=== PATIENT | male | born 1960 | race Caucasian/White ===

== ENCOUNTER 2023-04-05 09:28 | Inpatient (IN) | payer OTHER, SELFPAY ==
[2023-04-05] VITALS (24 sets, daily range): BP systolic 89–154; BP diastolic 65–106; PULSE 50–90; RESP 13–25; TEMP 35.7–36.6; O2SAT 65–100; BMI 23.3; BMI 25.0
--- NOTE | 2023-04-05 09:38 | EKG12_ITS ---
Test Reason : CP Blood Pressure : / mmHG Vent. Rate : 067 BPM Atrial Rate : 067 BPM P-R Int : 148 ms QRS Dur : 094 ms QT Int : 436 ms P-R-T Axes : 064 -30 -11 degrees QTc Int : 460 ms Sinus rhythm with Fusion complexes and Premature atrial complexes with Aberrant conduction Left axis deviation Low voltage QRS Anteroseptal infarct , possibly acute Lateral injury pattern ACUTE AR / STEMI Abnormal ECG Confirmed by MEI DICKSON, CARLITOS ([id number]), supervising film or videotape editor JOEL DAS ([id number]) on 04/08/2023 9:27:36 AM Referred By: Alysia Aldridge Confirmed By:CARLITOS HURLEY MD
[2023-04-05] MEDS: Aspirin 81 MG TAB.CHEW 324 MG PO (09:41)
[2023-04-05] MEDS: TICAGRELOR 90 MG TABLET 180 MG PO (09:42)
--- NOTE | 2023-04-05 09:42 | ED.VIS.CHEST ---
HPI History of Present Illness Chief Complaint: Chest Pain Informant: patient Onset/Context/Timing Onset: Today Activity at onset: sudden Timing: Continuous Quality: Positive for Heaviness Location: Right Chest and - (Right arm) Worsened By: Exertion Relieved By: Nothing Associated Symptoms: Positive for Nausea, Vomiting and Diaphoresis; Negative for Dyspnea, Cough, Fever, Lightheadedness, Acid Reflux or Palpitations Narrative Narrative: Patient presents with chest pain that began this morning. Patient states it began approximately 8:15 AM today. Patient states it began rather suddenly. Patient states it is over the right side of his chest. Patient states it radiates down his right arm. Patient states he broke out into a sweat with it. Patient states he did have some nausea and vomiting with it. Patient denies any shortness of breath. Patient denies any lightheadedness or dizziness. Patient describes his pain as a heaviness. CVD Risk Factors: Negative for Hypertension, Diabetes, Hypercholesterolemia, Family History 1' </=55 or Smoking PE Risk Factors: Negative for Recent Travel/Surgery, Recent Immobilization, Prior DVT or PE or Cancer PFSH PFS Medical History (Updated 04/05/23 @ 16:39 by Claudette Buckley) Atherosclerosis of coronary artery of [place] heart without angina pectoris Coronary artery disease Medical History no medical history no medical history Home Medications NK 04/05/23 [History Last Taken Unknown] Allergy/AdvReac Type Severity Reaction Status Date / Time No Known Allergies Allergy Verified 04/05/23 09:41 Family History (Updated 04/05/23 @ 14:[address] Andrew Downs DO) Mother Heart disease Brother Heart disease Surgical History (Updated 04/05/23 @ 16:39 by Claudette Buckley) History of placement of stent in LAD coronary artery (~04/05/23) Surgical History no surgical history no surgical history Social History (Updated 04/05/23 @ 14:[address] Andrew Downs DO) Smoking Status: Never smoker alcohol intake: never substance use type: does not use ROS ROS ED Constitutional Constitutional ED: Denies chills or fever(s) Eyes Eyes: Denies blurry vision or change in vision ENT ENT ED: Denies rhinorrhea or sore throat Cardiovascular Cardiovascular: Reports as per HPI and chest pain; Denies palpitations Respiratory/Chest Respiratory/Chest: Denies cough or dyspnea Gastrointestinal Gastrointestinal: Reports nausea and vomiting; Denies abdominal pain Genitourinary Genitourinary ED: Denies dysuria or hematuria Musculoskeletal Musculoskeletal: Denies back pain or neck pain Integumentary Denies abscess or rash Neurologic Neurologic: Denies headache(s) or weakness Allergic/Immunologic Allergic/Immunologic ED: Denies mouth swelling or urticaria EXAM Physical Exam Const Vital Signs: 04/05/23 09:29 04/05/23 09:38 04/05/23 09:48 Temperature 96.2 F L Temperature Source Temporal Pulse Rate 50 L Respiratory Rate 18 16 Respiratory Effort Respiratory Depth Respiratory Pattern Blood Pressure 142/93 H 154/97 H Blood Pressure Mean 109 Blood Pressure Source Blood Pressure Position Blood Pressure Location Pulse Ox 100 Oxygen Delivery Method Room Air Nasal Cannula Oxygen Flow Rate (L/min) 2 Fraction of Inspired Oxygen (FIO2) 98 04/05/23 10:09 04/05/23 11:49 04/05/23 12:29 Temperature 96.2 F L 97.9 F Temperature Source Oral Temporal Pulse Rate 56 L 79 Respiratory Rate 16 25 H Respiratory Effort Non-Labored Short of Breath Respiratory Depth Normal Respiratory Pattern Normal Blood Pressure 154/79 H 147/93 H Blood Pressure Mean 104 111 Blood Pressure Source Monitor Blood Pressure Position Semi-Fowlers Blood Pressure Location Left Arm Pulse Ox 98 81 Oxygen Delivery Method Nasal Cannula Nasal Cannula Nasal Cannula Oxygen Flow Rate (L/min) 2 5 5 Fraction of Inspired Oxygen (FIO2) 04/05/23 12:34 04/05/23 12:00 04/05/23 12:15 Temperature 97.9 F Temperature Source Temporal Pulse Rate 81 75 85 Respiratory Rate 16 15 15 Respiratory Effort Respiratory Depth Respiratory Pattern Blood Pressure 110/77 134/86 H 123/81 H Blood Pressure Mean 88 102 95 Blood Pressure Source Monitor Monitor Blood Pressure Position Semi-Fowlers Semi-Fowlers Blood Pressure Location Left Arm Left Arm Pulse Ox 91 94 95 Oxygen Delivery Method Nasal Cannula Nasal Cannula Nasal Cannula Oxygen Flow Rate (L/min) 5 5 5 Fraction of Inspired Oxygen (FIO2) 04/05/23 12:30 04/05/23 12:45 04/05/23 12:50 Temperature Temperature Source Pulse Rate 85 90 Respiratory Rate 19 H 22 H Respiratory Effort Respiratory Depth Respiratory Pattern Blood Pressure 110/77 113/86 H Blood Pressure Mean 88 95 Blood Pressure Source Monitor Monitor Blood Pressure Position Semi-Fowlers Semi-Fowlers Blood Pressure Location Left Arm Left Arm Pulse Ox 92 96 95 Oxygen Delivery Method Nasal Cannula Nasal Cannula Nasal Cannula Oxygen Flow Rate (L/min) 6 6 6 Fraction of Inspired Oxygen (FIO2) 04/05/23 13:00 04/05/23 13:15 04/05/23 13:30 Temperature Temperature Source Pulse Rate 88 85 80 Respiratory Rate 13 18 16 Respiratory Effort Respiratory Depth Respiratory Pattern Blood Pressure 89/65 L 111/80 111/80 Blood Pressure Mean 73 90 90 Blood Pressure Source Monitor Monitor Monitor Blood Pressure Position Semi-Fowlers Semi-Fowlers Semi-Fowlers Blood Pressure Location Left Arm Left Arm Left Arm Pulse Ox 98 93 97 Oxygen Delivery Method Nasal Cannula Nasal Cannula Nasal Cannula Oxygen Flow Rate (L/min) 6 6 6 Fraction of Inspired Oxygen (FIO2) 04/05/23 13:45 Temperature Temperature Source Pulse Rate 86 Respiratory Rate 16 Respiratory Effort Respiratory Depth Respiratory Pattern Blood Pressure 125/86 H Blood Pressure Mean 99 Blood Pressure Source Monitor Blood Pressure Position Semi-Fowlers Blood Pressure Location Left Arm Pulse Ox 100 Oxygen Delivery Method Nasal Cannula Oxygen Flow Rate (L/min) 6 Fraction of Inspired Oxygen (FIO2) Positive well nourished, well developed and obese General Appearance ED: well developed Nutritional Appearance: obese HEENT normocephalic and atraumatic Eyes PERRL and EOMs intact bilaterally Neck supple and no JVD Chest Wall palpation of chest normal Resp normal respiratory effort and clear to auscultation bilaterally Effort and Inspection: Negative for respiratory distress Cardio regular rate, regular rhythm and no murmurs GI normal to inspection, nondistended, normoactive bowel sounds, soft to palpation, non-tender and non-distended Extremity normal to inspection General Extremety ED: Negative for edema or tenderness General Extremity: Negative for edema Neuro oriented x3, CN's II-XII intact bilaterally and no sensory deficits noted Sensorium / Orientation: awake and alert Motor Exam: strength 5/5 throughout Psych mental status grossly normal Heart Score History: Highly Suspicious ECG: Significant ST-Depression Age: >45 - <65 years Risk Factors: No Risk Factors Score: 5 MDM MDM MDM Narrative Medical decision making narrative: EKG shows evidence of acute ST elevation [place]. Because of this, STEMI alert was called. Patient was given aspirin, heparin, and Brilinta. Dr. Aldridge came to the emergency department and reviewed the EKG. He agrees with this and will take the patient to the Orientation & Mobility Specialist. Case was discussed with a hospitalist. He will admit the patient to his service to the ICU after the patient is done with the cardiac catheterization. Lab Data Attestation: I reviewed the patient's lab results. Labs: Laboratory Results - last 24 hr 04/05/23 04/05/23 04/05/23 09:45 09:45 09:45 WBC Cancelled Corrected WBC Cancelled RBC Cancelled Hgb Cancelled Hct Cancelled MCV Cancelled MCH Cancelled MCHC Cancelled RDW Std Deviation Cancelled RDW Coeff of Stan Cancelled Plt Count Cancelled MPV Cancelled Immature Gran % (Auto) Cancelled Neut % (Auto) Cancelled Lymph % (Auto) Cancelled [place] % (Auto) Cancelled Eos % (Auto) Cancelled Baso % (Auto) Cancelled Neut # (Auto) Cancelled Immature Gran # (Auto) Cancelled Absolute Neuts (auto) Cancelled Absolute Lymphs (auto) Cancelled Absolute Monos (auto) Cancelled Total Counted Cancelled Neutrophils % (Manual) Cancelled Band Neutrophils % Cancelled Lymphocytes % (Manual) Cancelled Monocytes % (Manual) Cancelled Eosinophils % (Manual) Cancelled Basophils % (Manual) Cancelled Metamyelocytes % Cancelled Myelocytes % Cancelled Promyelocytes % Cancelled Blast Cells % Cancelled Plasma Cell % (Manual) Cancelled Other Cells % Cancelled Nucleated RBC % Cancelled Lymphocytes # Cancelled Basophils # Cancelled Nucleated RBCs/100 WBC Cancelled Differential Comment Cancelled Diff Path Review Cancelled Hypersegmented Neuts Cancelled Atypical Lymphocytes Cancelled Reactive Lymphocytes Cancelled Smudge Cells Cancelled Eosinophilia # Cancelled Toxic Granulation Cancelled Toxic Vacuolation Cancelled Dohle Bodies Cancelled Hailey Rods Cancelled Platelet Estimate Cancelled Plt Morphology Comment Cancelled RBC Morphology Cancelled Polychromasia Cancelled Hypochromasia Cancelled Poikilocytosis Cancelled Basophilic Stippling Cancelled Anisocytosis Cancelled Microcytosis Cancelled Macrocytosis Cancelled Spherocytes Cancelled Sickle Cells Cancelled Target Cells Cancelled Tear Drop Cells Cancelled Ovalocytes Cancelled Stomatocytes Cancelled Fischer-[place]lm Bodies Cancelled [place] Cells Cancelled Bite Cells Cancelled Crenated Cell Cancelled Acanthocytes (Spur) Cancelled Rouleaux Cancelled Schistocytes Cancelled PT Cancelled INR Cancelled APTT Cancelled Activated Clotting Time Sodium Cancelled Potassium Cancelled Chloride Cancelled Carbon Dioxide Cancelled Anion Gap Cancelled BUN Cancelled Creatinine Cancelled Estim Creat Clear Calc Cancelled Est GFR (MDRD) Af Amer Cancelled Est GFR (MDRD) Non-Af Cancelled BUN/Creatinine Ratio Cancelled Glucose Cancelled Calcium Cancelled Troponin I High Sens Cancelled 04/05/23 04/05/23 04/05/23 11:05 11:05 11:05 WBC 18.8 H Corrected WBC RBC 4.40 L Hgb 13.2 Hct 37.5 L MCV 85.2 MCH 30.0 MCHC 35.2 RDW Std Deviation 38.1 RDW Coeff of Stan 12.2 Plt Count 316 MPV 9.8 Immature Gran % (Auto) 0.700 Neut % (Auto) 82.5 H Lymph % (Auto) 10.1 L [place] % (Auto) 4.5 Eos % (Auto) 1.1 Baso % (Auto) 1.1 H Neut # (Auto) Immature Gran # (Auto) Absolute Neuts (auto) 15.5 H Absolute Lymphs (auto) 1.90 Absolute Monos (auto) Total Counted Neutrophils % (Manual) Band Neutrophils % Lymphocytes % (Manual) Monocytes % (Manual) Eosinophils % (Manual) Basophils % (Manual) Metamyelocytes % Myelocytes % Promyelocytes % Blast Cells % Plasma Cell % (Manual) Other Cells % Nucleated RBC % 0 Lymphocytes # Basophils # Nucleated RBCs/100 WBC Differential Comment Diff Path Review Hypersegmented Neuts Atypical Lymphocytes Reactive Lymphocytes Smudge Cells Eosinophilia # Toxic Granulation Toxic Vacuolation Dohle Bodies Hailey Rods Platelet Estimate Plt Morphology Comment RBC Morphology Polychromasia Hypochromasia Poikilocytosis Basophilic Stippling Anisocytosis Microcytosis Macrocytosis Spherocytes Sickle Cells Target Cells Tear Drop Cells Ovalocytes Stomatocytes Fischer-[place] Bodies [place] Cells Bite Cells Crenated Cell Acanthocytes (Spur) Rouleaux Schistocytes PT 17.0 H INR 1.4 APTT > 200.0 H* Activated Clotting Time Sodium 134 L Potassium 4.2 Chloride 104 Carbon Dioxide 20.0 L Anion Gap 10 BUN 15 Creatinine 1.26 Estim Creat Clear Calc 60.32 Est GFR (MDRD) Af Amer 75 Est GFR (MDRD) Non-Af 62 BUN/Creatinine Ratio 11.9 Glucose 234 H Calcium 8.4 L Troponin I High Sens > 060945 H* 0523/23 11:10 WBC Corrected WBC RBC Hgb Hct MCV MCH MCHC RDW Std Deviation RDW Coeff of Stan Plt Count MPV Immature Gran % (Auto) Neut % (Auto) Lymph % (Auto) [place] % (Auto) Eos % (Auto) Baso % (Auto) Neut # (Auto) Immature Gran # (Auto) Absolute Neuts (auto) Absolute Lymphs (auto) Absolute Monos (auto) Total Counted Neutrophils % (Manual) Band Neutrophils % Lymphocytes % (Manual) Monocytes % (Manual) Eosinophils % (Manual) Basophils % (Manual) Metamyelocytes % Myelocytes % Promyelocytes % Blast Cells % Plasma Cell % (Manual) Other Cells % Nucleated RBC % Lymphocytes # Basophils # Nucleated RBCs/100 WBC Differential Comment Diff Path Review Hypersegmented Neuts Atypical Lymphocytes Reactive Lymphocytes Smudge Cells Eosinophilia # Toxic Granulation Toxic Vacuolation Dohle Bodies Hailey Rods Platelet Estimate Plt Morphology Comment RBC Morphology Polychromasia Hypochromasia Poikilocytosis Basophilic Stippling Anisocytosis Microcytosis Macrocytosis Spherocytes Sickle Cells Target Cells Tear Drop Cells Ovalocytes Stomatocytes Fischer-[place] Bodies [place] Cells Bite Cells Crenated Cell Acanthocytes (Spur) Rouleaux Schistocytes PT INR APTT Activated Clotting Time 281 H Sodium Potassium Chloride Carbon Dioxide Anion Gap BUN Creatinine Estim Creat Clear Calc Est GFR (MDRD) Af Amer Est GFR (MDRD) Non-Af BUN/Creatinine Ratio Glucose Calcium Troponin I High Sens EKG Initial EKG: Attestation: I personally reviewed and interpreted this EKG as follows: Interpretation: Sinus Rhythm and S-T Elevation (I, aVL, V1 through V6) Prior EKG tracings: not available for review Prior: No Prior Management Discussion w/another healthcare provider: Hospitalist (Dr. Downs) and Medical Claims Processor (Dr. Aldridge) Critical Care Time Critical care time (excluding procedures): 30-74 minutes (31), Including time spent:, Discussing w/Patient &/or Family/Wind Field Service Manager, Discussing w/Consultants, Arranging Admission or Transfer and Performing Direct Patient Care at Bedside Discharge Plan Dx/Rx/DC Orders Clinical Impression: Acute ST elevation myocardial infarction (STEMI), Chest pain Disposition Disposition: Acute Care Hospital [facility] Discharge Date/Time: 04/05/23 09:55
[2023-04-05] MEDS: Heparin Injection (Vial) 5,000 UNIT/ML VIAL 4000 UNIT IV (09:43)
[2023-04-05] MEDS: EPTIFIBATIDE 75 MG/100 ML VIAL 12 MG CONT INF ×2 (10:05→18:09)
--- NOTE | 2023-04-05 10:21 | EKG12_ITS ---
Test Reason : AM EKG Blood Pressure : / mmHG Vent. Rate : 069 BPM Atrial Rate : 069 BPM P-R Int : 138 ms QRS Dur : 090 ms QT Int : 448 ms P-R-T Axes : 051 031 079 degrees QTc Int : 480 ms Normal sinus rhythm Anterolateral infarct , age undetermined Abnormal ECG Confirmed by MEI DICKSON, CARLITOS ([id number]), associate entertainment editor JOEL DAS ([id number]) on 04/07/2023 9:17:28 AM Referred By: Alysia Aldridge Confirmed By:CARLITOS HURLEY MD
[2023-04-05 11:15] LABS: Absolute Neutrophil Count 15.5 X10^3/uL (2.0-7.7); Basophil% 1.1 % (0-1); Eosinophil# 0.21 X10^3/uL; Eosinophils% 1.1 % (0-5); Hematocrit 37.5 % (40-54); Hemoglobin 13.2 g/dL (13.0-16.5); Lymphocyte % 10.1 % (19-41); Mean Corp Hgb Conc 35.2 g/dL (32-36); Mean Corpuscular Volume 85.2 fL (80-94); Mean Platelet Vol. 9.8 fl (6.2-12.0); Monocyte# 0.85 X10^3/uL; Monocyte% 4.5 % (0-10); NRBC Flagged by Analyzer 0 % (0-5); Neutrophil # 15.47 X10^3/uL (2.7-7.7); Neutrophil % 82.5 % (47-70); Platelet Count 316 K/mm3 (150-450); RBC Distribution Width CV 12.2 % (11.6-14.6); RBC Distribution Width SD 38.1 fl (35.1-43.9); White Blood Count 18.8 K/mm3 (4.4-11.0)
[2023-04-05 11:44] LABS: International Normalized Ratio 1.4
[2023-04-05 12:03] LABS: Partial Thromboplast Time > 200.0 Seconds (24.1-36.2)
--- NOTE | 2023-04-05 12:25 | NURSING ---
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 Blood pressure was good patient was weaned down from 10mcg/min to 5mcg/min at 12:00 then placed on hold at 12:15. 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
[2023-04-05 12:45] LABS: Anion Gap 10 (5-15); BUN 15 mg/dL (7-18); BUN/Creat Ratio 11.9 RATIO (10-20); Calcium,Total 8.4 mg/dL (8.5-10.1); Chloride 104 mmol/L (98-107); Creatinine, Serum 1.26 mg/dL (0.70-1.30); EST Glomerular Filtration Rate 62 mL/min (>60); Est Glom Filt Rate - Afr Amer 75 mL/min (>60); Estimated Creatinine Clearance 60.32 ml/min; Glucose 234 mg/dL (74-106); Potassium 4.2 mmol/L (3.5-5.1); Sodium Level 134 mmol/L (136-145); Troponin-I HS > 125000 pg/mL (3.0-78.0)
[2023-04-05 13:25] LABS: ACT Activated Clotting Time 281 sec (74-137)
--- NOTE | 2023-04-05 14:00 | EKG12_ITS ---
Test Reason : STEMI Blood Pressure : / mmHG Vent. Rate : 075 BPM Atrial Rate : 075 BPM P-R Int : 160 ms QRS Dur : 092 ms QT Int : 398 ms P-R-T Axes : 055 -17 066 degrees QTc Int : 444 ms Normal sinus rhythm Low voltage QRS Abnormal ECG No previous ECGs available Confirmed by MEI DICKSON, CARLITOS ([id number]), film editor JOEL DAS ([id number]) on 04/07/2023 9:17:57 AM Referred By: Alysia Aldridge Confirmed By:CARLITOS HURLEY MD
--- NOTE | 2023-04-05 14:02 | PCM.HP.STD ---
HPI - General General Date of Admission: 04/05/23 Date of Service: 04/05/23 Chief Complaint: Chest pain HPI Narrative ALISON HARDY, is a 62 M who presents with chest pain. Symptoms began at 815 today was having intercourse. States that it was in the right side of his chest went down his right arm. Became diaphoretic and had nausea and vomiting. Patient presented to the emergency room and had anterior, V1 through V6 as well as [address] elevations with reciprocal changes in the inferior leads. In the emergency room, patient had vomiting episode and was unsure if the patient actually received his ticagrelor. Patient underwent left heart catheterization that showed LAD stenosis and had 2 stents placed to the LAD in the proximal and mid. Patient did become hypotensive at 1 point requiring pressors with norepinephrine. Blood pressure did subsequently improve and patient was transferred to the intensive care unit. Since it was unclear the patient did receive his ticagrelor, patient was continued on Integrilin. Patient denies any prior history of myocardial infarction. Currently, the patient is chest pain-free. [facility] Medical History (Updated 04/05/23 @ 14:[address] Andrew Downs DO) Coronary artery disease Medical History no medical history Home Medications NK 04/05/23 [History Last Taken Unknown] Allergy/AdvReac Type Severity Reaction Status Date / Time No Known Allergies Allergy Verified 04/05/23 09:41 Family History (Updated 04/05/23 @ 14:[address] Andrew Downs DO) Mother Heart disease Brother Heart disease Surgical History no surgical history no surgical history Social History (Updated 04/05/23 @ 14:[address] Andrew Downs DO) Smoking Status: Never smoker alcohol intake: never substance use type: does not use ROS ROS Narrative All review of systems were negative except as mentioned above in the history of present illness and the other review of systems. Vital Signs Vital Signs Vital Signs: 04/05/23 09:29 04/05/23 09:38 04/05/23 09:48 Temperature 35.7 C L Temperature Source Temporal Pulse Rate 50 L Respiratory Rate 18 16 Respiratory Effort Respiratory Depth Respiratory Pattern Blood Pressure 142/93 H 154/97 H Blood Pressure Mean 109 Blood Pressure Source Blood Pressure Position Blood Pressure Location Pulse Ox 100 Oxygen Delivery Method Room Air Nasal Cannula Oxygen Flow Rate (L/min) 2 Fraction of Inspired Oxygen (FIO2) 98 04/05/23 10:09 04/05/23 11:49 04/05/23 12:29 Temperature 35.7 C L 36.6 C Temperature Source Oral Temporal Pulse Rate 56 L 79 Respiratory Rate 16 25 H Respiratory Effort Non-Labored Short of Breath Respiratory Depth Normal Respiratory Pattern Normal Blood Pressure 154/79 H 147/93 H Blood Pressure Mean 104 111 Blood Pressure Source Monitor Blood Pressure Position Semi-Fowlers Blood Pressure Location Left Arm Pulse Ox 98 81 Oxygen Delivery Method Nasal Cannula Nasal Cannula Nasal Cannula Oxygen Flow Rate (L/min) 2 5 5 Fraction of Inspired Oxygen (FIO2) 04/05/23 12:34 04/05/23 12:00 04/05/23 12:15 Temperature 36.6 C Temperature Source Temporal Pulse Rate 81 75 85 Respiratory Rate 16 15 15 Respiratory Effort Respiratory Depth Respiratory Pattern Blood Pressure 110/77 134/86 H 123/81 H Blood Pressure Mean 88 102 95 Blood Pressure Source Monitor Monitor Blood Pressure Position Semi-Fowlers Semi-Fowlers Blood Pressure Location Left Arm Left Arm Pulse Ox 91 94 95 Oxygen Delivery Method Nasal Cannula Nasal Cannula Nasal Cannula Oxygen Flow Rate (L/min) 5 5 5 Fraction of Inspired Oxygen (FIO2) 04/05/23 12:30 04/05/23 12:45 04/05/23 12:50 Temperature Temperature Source Pulse Rate 85 90 Respiratory Rate 19 H 22 H Respiratory Effort Respiratory Depth Respiratory Pattern Blood Pressure 110/77 113/86 H Blood Pressure Mean 88 95 Blood Pressure Source Monitor Monitor Blood Pressure Position Semi-Fowlers Semi-Fowlers Blood Pressure Location Left Arm Left Arm Pulse Ox 92 96 95 Oxygen Delivery Method Nasal Cannula Nasal Cannula Nasal Cannula Oxygen Flow Rate (L/min) 6 6 6 Fraction of Inspired Oxygen (FIO2) 04/05/23 13:00 04/05/23 13:15 04/05/23 13:30 Temperature Temperature Source Pulse Rate 88 85 80 Respiratory Rate 13 18 16 Respiratory Effort Respiratory Depth Respiratory Pattern Blood Pressure 89/65 L 111/80 111/80 Blood Pressure Mean 73 90 90 Blood Pressure Source Monitor Monitor Monitor Blood Pressure Position Semi-Fowlers Semi-Fowlers Semi-Fowlers Blood Pressure Location Left Arm Left Arm Left Arm Pulse Ox 98 93 97 Oxygen Delivery Method Nasal Cannula Nasal Cannula Nasal Cannula Oxygen Flow Rate (L/min) 6 6 6 Fraction of Inspired Oxygen (FIO2) 04/05/23 13:45 Temperature Temperature Source Pulse Rate 86 Respiratory Rate 16 Respiratory Effort Respiratory Depth Respiratory Pattern Blood Pressure 125/86 H Blood Pressure Mean 99 Blood Pressure Source Monitor Blood Pressure Position Semi-Fowlers Blood Pressure Location Left Arm Pulse Ox 100 Oxygen Delivery Method Nasal Cannula Oxygen Flow Rate (L/min) 6 Fraction of Inspired Oxygen (FIO2) Weight Weight: 74.871 kg Body Mass Index (BMI) 25.0 Physical Exam Narrative - Physical Exam General: Alert, Oriented x3, Cooperative HEENT: Atraumatic, PERRLA, EOMI, Normocephalic Oral: Moist Mucosa, No Gingival or Mucosal Lesions/ Ulcerations Neck: Supple, No JVD, Negative Carotid Bruits Lungs: Clear to auscultation, Normal air movement Cardiovascular: Regular rate, Normal S1, Normal S2, No murmurs Abdomen: Bowel Sounds Present, Soft, Non Tender, Non-Distended, No Hepato-splenomegaly Extremities: No clubbing, No cyanosis, No edema, does have compression band on right wrist. Skin: No rashes, No breakdown Musculoskeletal: No Tenderness to Palpation of Joints or Extremities Neurological: Neuro grossly intact Psych/Mental Status: Normal Affect, Appropriate Results Lab / Micro Data Attestation: I reviewed the patient's lab results. Result Diagrams: 04/05/23 11:05 04/05/23 11:05 Labs: Laboratory Results - last 24 hr 04/05/23 09:45: WBC Cancelled, Corrected WBC Cancelled, RBC Cancelled, Hgb Cancelled, Hct Cancelled, MCV Cancelled, MCH Cancelled, MCHC Cancelled, RDW Std Deviation Cancelled, RDW Coeff of Stan Cancelled, Plt Count Cancelled, MPV Cancelled, Immature Gran % (Auto) Cancelled, Neut % (Auto) Cancelled, Lymph % (Auto) Cancelled, [place] % (Auto) Cancelled, Eos % (Auto) Cancelled, Baso % (Auto) Cancelled, Neut # (Auto) Cancelled, Immature Gran # (Auto) Cancelled, Absolute Neuts (auto) Cancelled, Absolute Lymphs (auto) Cancelled, Absolute Monos (auto) Cancelled, Total Counted Cancelled, Neutrophils % (Manual) Cancelled, Band Neutrophils % Cancelled, Lymphocytes % (Manual) Cancelled, Monocytes % (Manual) Cancelled, Eosinophils % (Manual) Cancelled, Basophils % (Manual) Cancelled, Metamyelocytes % Cancelled, Myelocytes % Cancelled, Promyelocytes % Cancelled, Blast Cells % Cancelled, Plasma Cell % (Manual) Cancelled, Other Cells % Cancelled, Nucleated RBC % Cancelled, Lymphocytes # Cancelled, Basophils # Cancelled, Nucleated RBCs/100 WBC Cancelled, Differential Comment Cancelled, Diff Path Review Cancelled, Hypersegmented Neuts Cancelled, Atypical Lymphocytes Cancelled, Reactive Lymphocytes Cancelled, Smudge Cells Cancelled, Eosinophilia # Cancelled, Toxic Granulation Cancelled, Toxic Vacuolation Cancelled, Dohle Bodies Cancelled, Hailey Rods Cancelled, Platelet Estimate Cancelled, Plt Morphology Comment Cancelled, RBC Morphology Cancelled, Polychromasia Cancelled, Hypochromasia Cancelled, Poikilocytosis Cancelled, Basophilic Stippling Cancelled, Anisocytosis Cancelled, Microcytosis Cancelled, Macrocytosis Cancelled, Spherocytes Cancelled, Sickle Cells Cancelled, Target Cells Cancelled, Tear Drop Cells Cancelled, Ovalocytes Cancelled, Stomatocytes Cancelled, [place] Bodies Cancelled, [place] Cells Cancelled, Bite Cells Cancelled, Crenated Cell Cancelled, Acanthocytes (Spur) Cancelled, Rouleaux Cancelled, Schistocytes Cancelled 04/05/23 09:45: PT Cancelled, INR Cancelled, APTT Cancelled 04/05/23 09:45: Sodium Cancelled, Potassium Cancelled, Chloride Cancelled, Carbon Dioxide Cancelled, Anion Gap Cancelled, BUN Cancelled, Creatinine Cancelled, Estim Creat Clear Calc Cancelled, Est GFR (MDRD) Af Amer Cancelled, Est GFR (MDRD) Non-Af Cancelled, BUN/Creatinine Ratio Cancelled, Glucose Cancelled, Calcium Cancelled, Troponin I High Sens Cancelled 04/05/23 11:05: PT 17.0 H, INR 1.4, APTT > 200.0 H* 04/05/23 11:05: Sodium 134 L, Potassium 4.2, Chloride 104, Carbon Dioxide 20.0 L, Anion Gap 10, BUN 15, Creatinine 1.26, Estim Creat Clear Calc 60.32, Est GFR (MDRD) Af Amer 75, Est GFR (MDRD) Non-Af 62, BUN/Creatinine Ratio 11.9, Glucose 234 H, Calcium 8.4 L, Troponin I High Sens > [id number] H* 04/05/23 11:05: WBC 18.8 H, RBC 4.40 L, Hgb 13.2, Hct 37.5 L, MCV 85.2, MCH 30.0, MCHC 35.2, RDW Std Deviation 38.1, RDW Coeff of Stan 12.2, Plt Count 316, MPV 9.8, Immature Gran % (Auto) 0.700, Neut % (Auto) 82.5 H, Lymph % (Auto) 10.1 L, [place] % (Auto) 4.5, Eos % (Auto) 1.1, Baso % (Auto) 1.1 H, Absolute Neuts (auto) 15.5 H, Absolute Lymphs (auto) 1.90, Nucleated RBC % 0 04/05/23 11:10: Activated Clotting Time 281 H EKG Initial EKG: Attestation: I personally reviewed and interpreted this EKG as follows: Prior EKG tracings: available for review EKG Rhythm Intrepretation: Sinus Rhythm (ST elevations in V1 through V6 as well as lead I and aVL. Reciprocal ST depressions in the inferior leads.) Assessment & Plan Assessment/Plan (1) Acute ST elevation myocardial infarction (STEMI): PLAN: Patient's status post stents to the mid and proximal LAD. Troponins are greater than 125,000 Continue with aspirin, ticagrelor, atorvastatin and Integrilin for now. Cardiology has seen and will continue to be on consultation Check 2D echocardiogram I discussed with the patient and his at bedside. Explained that he is going to be on dual antiplatelet therapy for at least next year and continue with statins. Given his transient hypotension, will remain to be seen what antihypertensives he will be put on but I would suspect ISAIAS inhibitors and beta-blockers. (2) Hyperglycemia: PLAN: Glucose was 234. Unclear if this is reactive or not. Check his blood sugar and have him have a moderate dose sliding scale insulin Check an A1c PLAN: Plan VTE prophylaxis: SCDs for now. Disposition: Anticipate the patient will be here 2 midnights given his myocardial infarction and profound troponin elevation. Patient will need further monitoring to eval for any arrhythmias. CODE STATUS: Addressed with the patient. Patient wishes to be full code. Charges/Coding Visit Charges Inpatient E&M: 03109 Init Hosp L3
--- NOTE | 2023-04-05 14:04 | ECHOCS_ITS ---
Reason For Study: Chest pain, STEMI Procedure This was a 2D Doppler, Color Flow transthoracic echocardiogram. The study was technically difficult. Contrast injection was performed. Exam performed portable in ICU/CCU. Left Ventricle Normal LV size. The estimated ejection fraction is 35 %. Stage 2 diastolic dysfunction. Severe hypokinesis of the apex, septum and anterior dennison. Right Ventricle Normal RV size. Normal systolic function. Atria Normal left atrium. Normal right atrium. No doppler evidence for ASD. Mitral Valve There is no mitral valve stenosis. Mild (1+) mitral valve insufficiency. Tricuspid Valve There is no tricuspid stenosis. Trivial tricuspid valve insufficiency. Pulmonary artery systolic pressure is 50-55 mmHg. Aortic Valve Trisinus/trileaflet aortic valve. There is no aortic stenosis. No aortic valve insufficiency. Pulmonic Valve There is no pulmonic valvular stenosis. No pulmonic valve insufficiency. Great Vessels Normal aortic root. Pericardium/Pleural No pericardial effusion. MMode/2D Measurements & Calculations LVIDd: 3.8 cm IVSd: 1.3 cm Ao root diam: 3.3 cm LVIDs: 2.4 cm LVPWd: 1.2 cm RVDd: 3.2 cm FS: 37.6 % LAV(MOD-bp): 38.0 ml LVAd ap4: 29.7 cm2 LVAd ap2: 31.1 cm2 LAV(MOD-bp) Indexed: 20.2 ml/m2 LVLd ap4: 8.5 cm LVLd ap2: 8.5 cm LAV(MOD-sp2): 37.9 ml EDV(MOD-sp4): 86.2 ml EDV(MOD-sp2): 91.9 ml LAV(MOD-sp4): 33.7 ml EDV(sp4-el): 87.9 ml EDV(sp2-el): 96.4 ml LVAs ap4: 22.0 cm2 LVAs ap2: 23.6 cm2 LVLs ap4: 8.0 cm LVLs ap2: 7.7 cm ESV(MOD-sp4): 50.0 ml ESV(MOD-sp2): 57.5 ml ESV(sp4-el): 51.4 ml ESV(sp2-el): 60.9 ml EF(MOD-sp4): 42.0 % EF(MOD-sp2): 37.4 % EF(sp4-el): 41.5 % SV(MOD-sp4): 36.2 ml SV(MOD-sp2): 34.4 ml SV(sp4-el): 36.5 ml LA dimension(2D): 3.6 cm LA A4 area: 13.7 cm2 RA A4 area: 10.4 cm2 Time Measurements MV dec time: 0.19 sec Doppler Measurements & Calculations MV E max joseph: 85.3 cm/sec Lat Peak E' Joseph: 5.6 cm/sec Med Peak E' Joseph: 6.1 cm/sec MV A max joseph: 36.2 cm/sec E/E' lat: 15.3 E/E' med: 14.0 MV E/A: 2.4 MV V2 max: 90.5 cm/sec MV dec slope: 439.4 cm/sec2 Ao V2 max: 112.7 cm/sec MV max P.3 mmHg Ao max P.1 mmHg MV V2 mean: 52.9 cm/sec Ao V2 mean: 75.7 cm/sec MV mean P.3 mmHg Ao mean P.7 mmHg MV V2 VTI: 26.4 cm Ao V2 VTI: 20.2 cm AV (velocity ratio): 0.76 LV V1 max: 87.5 cm/sec PA V2 max: 82.8 cm/sec TR max joseph: 289.5 cm/sec LV V1 max P.1 mmHg PA V2 mean: 57.2 cm/sec TR max P.9 mmHg LV V1 mean P.7 mmHg LV V1 mean: 59.9 cm/sec LV V1 VTI: 15.3 cm ECHO/Echo Complete W/ Contrast Interpretation Summary The estimated ejection fraction is 35 %. Stage 2 diastolic dysfunction. Severe hypokinesis of the apex, septum and anterior dennison Mild (1+) mitral valve insufficiency. Ordering Physician: Andrew Downs Referring Physician: Alysia Aldridge Performed By: Latoya Garcia RCS
--- NOTE | 2023-04-05 14:10 | RAD_ITS ---
HISTORY: chest pain. TECHNIQUE: XR Chest 1 View. COMPARISON: None. FINDINGS: CARDIOMEDIASTINAL BORDERS: Cardiac silhouette within normal limits in size. Mediastinal contour unremarkable. LUNGS: Mild perihilar and interstitial opacities. PLEURA: No pleural effusion or pneumothorax seen. OSSEOUS STRUCTURES: Mild thoracic dextrocurvature. RAD/Chest 1 View (Portable) IMPRESSION: Mild interstitial opacities, likely early pulmonary edema. Electronically Signed: Taylor De MD at 14:56 EDT ,
--- NOTE | 2023-04-05 15:05 | CON.PCM.CA_ITS ---
Assessment & Plan Assessment/Plan (1) Acute ST elevation myocardial infarction (STEMI): PLAN: Treated with drug-eluting stents to the LAD. Patient has residual disease in the RCA and also the circumflex which will be treated in a staged manner. At this time we will keep the patient on aspirin, Brilinta, Integrilin overnight, statin. Once the patient is off Levophed when his blood pressure is able to tolerate we will slowly start him on low-dose beta-gene and ISAIAS inhibitor (2) Cardiac arrest: PLAN: Patient went into PEA on the cath table while he was getting prepped for the procedure. CPR was done for less than a minute and patient regained spontaneous circulation. (3) Cardiogenic shock: PLAN: Secondary to ST elevation IN. Responded well to Levophed. Wean off Levophed when able to. HPI Consult Data Date of Consult: 04/05/23 HPI Narrative Reason for Consultation: STEMI HPI Narrative: ALISON HARDY, is a 62 M who presents with chest pain that started about an hour and a half prior to his presentation. The emergency room his EKG revealed anterior ST elevation IN and patient was taken emergently to the [facility]. While the patient was getting draped, he went into PEA briefly. Chest compre ssions were started and patient regained spontaneous circulation. He had 100% occlusion of the LAD that was treated with drug-eluting stents. Patient remained hypotensive and Levophed had to be started. His chest pain improved significantly and patient is doing well at the end of the procedure. He is being admitted to the CCU for further management of his ST elevation IN. Review of systems: All systems reviewed. Patient had an episode of vomiting when he arrived to the [facility]. All others negative except in HPI [facility] Medical History (Updated 04/05/23 @ 15:[address] Alysia Aldridge MD) Coronary artery disease Medical History no medical history Home Medications NK 04/05/23 [History Last Taken Unknown] Allergy/AdvReac Type Severity Reaction Status Date / Time No Known Allergies Allergy Verified 04/05/23 09:41 Family History (Updated 04/05/23 @ 14:[address] Andrew Downs DO) Mother Heart disease Brother Heart disease Surgical History no surgical history Social History (Updated 04/05/23 @ 14:[address] Andrew Jopperi, DO) Smoking Status: Never smoker alcohol intake: never substance use type: does not use Physical Exam Const alert and oriented x3 HEENT normocephalic Eyes no scleral icterus Resp normal respiratory effort Cardio regular rate Risk Stratification Risk Stratification Applicable: No Charges/Coding Visit Charges Inpatient E&M: 36844 Init Hosp L2 Objective Data Vital Signs: Vital Signs Temp Pulse Resp BP Pulse Ox O2 Del Method O2 Flow Rate 97.9 F 80 16 116/84 H 92 Nasal Cannula 4 04/05/23 12:34 04/05/23 14:00 04/05/23 14:00 04/05/23 14:00 04/05/23 14:00 04/05/23 14:00 04/05/23 14:00 FiO2 98 04/05/23 09:48 Oxygen Flow Rate (L/min) 4 Oxygen Delivery Method Nasal Cannula Weight: 165 lb 1 oz Body Mass Index (BMI) 25.0 Lab / Micro Data Result Diagrams: 04/05/23 11:05 04/05/23 11:05 Labs: Laboratory Results - last 24 hr 04/05/23 09:45: WBC Cancelled, Corrected WBC Cancelled, RBC Cancelled, Hgb Cancelled, Hct Cancelled, MCV Cancelled, MCH Cancelled, MCHC Cancelled, RDW Std Deviation Cancelled, RDW Coeff of Stan Cancelled, Plt Count Cancelled, MPV Cancelled, Immature Gran % (Auto) Cancelled, Neut % (Auto) Cancelled, Lymph % (Auto) Cancelled, [place] % (Auto) Cancelled, Eos % (Auto) Cancelled, Baso % (Auto) Cancelled, Neut # (Auto) Cancelled, Immature Gran # (Auto) Cancelled, Absolute Neuts (auto) Cancelled, Absolute Lymphs (auto) Cancelled, Absolute Monos (auto) Cancelled, Total Counted Cancelled, Neutrophils % (Manual) Cancelled, Band Neutrophils % Cancelled, Lymphocytes % (Manual) Cancelled, Monocytes % (Manual) Cancelled, Eosinophils % (Manual) Cancelled, Basophils % (Manual) Cancelled, Metamyelocytes % Cancelled, Myelocytes % Cancelled, Promyelocytes % Cancelled, Blast Cells % Cancelled, Plasma Cell % (Manual) Cancelled, Other Cells % Cancelled, Nucleated RBC % Cancelled, Lymphocytes # Cancelled, Basophils # Cancelled, Nucleated RBCs/100 WBC Cancelled, Differential Comment Cancelled, Diff Path Review Cancelled, Hypersegmented Neuts Cancelled, Atypical Lymphocytes Cancelled, Reactive Lymphocytes Cancelled, Smudge Cells Cancelled, Eosinophilia # Cancelled, Toxic Granulation Cancelled, Toxic Vacuolation Cancelled, Dohle Bodies Cancelled, Hailey Rods Cancelled, Platelet Estimate Cancelled, Plt Morphology Comment Cancelled, RBC Morphology Cancelled, Polychromasia Cancelled, Hypochromasia Cancelled, Poikilocytosis Cancelled, Basophilic Stippling Cancelled, Anisocytosis Cancelled, Microcytosis Cancelled, Macrocytosis Cancelled, Spherocytes Cancelled, Sickle Cells Cancelled, Target Cells Cancelled, Tear Drop Cells Cancelled, Ovalocytes Cancelled, Stomatocytes Cancelled, [place] Bodies Cancelled, [place] Cells Cancelled, Bite Cells Cancelled, Crenated Cell Cancelled, Acanthocytes (Spur) Cancelled, Rouleaux Cancelled, Schistocytes Cancelled 04/05/23 09:45: PT Cancelled, INR Cancelled, APTT Cancelled 04/05/23 09:45: Sodium Cancelled, Potassium Cancelled, Chloride Cancelled, Carbon Dioxide Cancelled, Anion Gap Cancelled, BUN Cancelled, Creatinine Cancelled, Estim Creat Clear Calc Cancelled, Est GFR (MDRD) Af Amer Cancelled, Est GFR (MDRD) Non-Af Cancelled, BUN/Creatinine Ratio Cancelled, Glucose Cancelled, Calcium Cancelled, Troponin I High Sens Cancelled 04/05/23 11:05: PT 17.0 H, INR 1.4, APTT > 200.0 H* 04/05/23 11:05: Sodium 134 L, Potassium 4.2, Chloride 104, Carbon Dioxide 20.0 L , Anion Gap 10, BUN 15, Creatinine 1.26, Estim Creat Clear Calc 60.32, Est GFR (MDRD) Af Amer 75, Est GFR (MDRD) Non-Af 62, BUN/Creatinine Ratio 11.9, Glucose 234 H, Calcium 8.4 L, Troponin I High Sens > 325286 H* 04/05/23 11:05: WBC 18.8 H, RBC 4.40 L, Hgb 13.2, Hct 37.5 L, MCV 85.2, MCH 30.0, MCHC 35.2, RDW Std Deviation 38.1, RDW Coeff of Stan 12.2, Plt Count 316, MPV 9.8, Immature Gran % (Auto) 0.700, Neut % (Auto) 82.5 H, Lymph % (Auto) 10.1 L, [place] % (Auto) 4.5, Eos % (Auto) 1.1, Baso % (Auto) 1.1 H, Absolute Neuts (auto) 15.5 H, Absolute Lymphs (auto) 1.90, Nucleated RBC % 0 04/05/23 11:10: Activated Clotting Time 281 H Cardiology Labs/Tests 04/05/23 09:45: WBC Cancelled, Corrected WBC Cancelled, RBC Cancelled, Hgb Cancelled, Hct Cancelled, MCV Cancelled, MCH Cancelled, MCHC Cancelled, Plt Count Cancelled, MPV Cancelled, Immature Gran % (Auto) Cancelled, Neut % (Auto) Cancelled, Lymph % (Auto) Cancelled, [place] % (Auto) Cancelled, Eos % (Auto) Cancelled, Baso % (Auto) Cancelled, Immature Gran # (Auto) Cancelled, Absolute Neuts (auto) Cancelled, Absolute Monos (auto) Cancelled, Total Counted C ancelled, Neutrophils % (Manual) Cancelled, Band Neutrophils % Cancelled, Lymphocytes % (Manual) Cancelled, Monocytes % (Manual) Cancelled, Eosinophils % (Manual) Cancelled, Basophils % (Manual) Cancelled, Metamyelocytes % Cancelled, Myelocytes % Cancelled, Promyelocytes % Cancelled, Blast Cells % Cancelled, Plasma Cell % (Manual) Cancelled, Other Cells % Cancelled, Nucleated RBC % Cancelled, Lymphocytes # Cancelled 04/05/23 09:45: PT Cancelled, INR Cancelled, APTT Cancelled 04/05/23 09:45: Sodium Cancelled, Potassium Cancelled, Chloride Cancelled, Carbon Dioxide Cancelled, Anion Gap Cancelled, BUN Cancelled, Creatinine Cancelled, Est GFR (MDRD) Af Amer Cancelled, Est GFR (MDRD) Non-Af Cancelled, BUN/Creatinine Ratio Cancelled, Glucose Cancelled, Calcium Cancelled 04/05/23 11:05: PT 17.0 H, INR 1.4, APTT > 200.0 H* 04/05/23 11:05: Sodium 134 L, Potassium 4.2, Chloride 104, Carbon Dioxide 20.0 L , Anion Gap 10, BUN 15, Creatinine 1.26, Est GFR (MDRD) Af Amer 75, Est GFR (MDRD) Non-Af 62, BUN/Creatinine Ratio 11.9, Glucose 234 H, Calcium 8.4 L 04/05/23 11:05: WBC 18.8 H, RBC 4.40 L, Hgb 13.2, Hct 37.5 L, MCV 85.2, MCH 30.0, MCHC 35.2, Plt Count 316, MPV 9.8, Immature Gran % (Auto) 0.700, Neut % (Auto) 82.5 H, Lymph % (Auto) 10.1 L, [place] % (Auto) 4.5, Eos % (Auto) 1.1, Baso % (Auto) 1.1 H, Absolute Neuts (auto) 15.5 H, Nucleated RBC % 0 Rhythm: EKG: ECHO: Stress Test: Cardiac Cath: PCI: CT Surgery: Holter monitor: EPS: PPM: CXR: Chest CT Scan: Radiography Diagnostic Testing: Radiology Impression Chest X-Ray 04/05/23 14:10 IMPRESSION: Mild interstitial opacities, likely early pulmonary edema. Electronically Signed: Taylor De MD at 14:56 EDT ,
[2023-04-05 15:54] LABS: Hemoglobin 13.5 g/dL (13.0-16.5); Mean Corp Hgb Conc 34.6 g/dL (32-36); Mean Corpuscular Hgb 30.1 pg (27.0-32.0); Mean Corpuscular Volume 87.1 fL (80-94); Mean Platelet Vol. 10.2 fl (6.2-12.0); Platelet Count 299 K/mm3 (150-450); RBC Distribution Width CV 12.4 % (11.6-14.6); RBC Distribution Width SD 39.5 fl (35.1-43.9); Red Blood Count 4.48 M/mm3 (4.6-6.2); White Blood Count 18.2 K/mm3 (4.4-11.0)
[2023-04-05 16:06] LABS: Bedside Glucose 141 mg/dL (74-106)
[2023-04-05] MEDS: Ondansetron 4 MG/2 ML Vial IV (17:41)
[2023-04-05 20:28] LABS: Hemoglobin A1c 6.4 % (3.8-5.6)
[2023-04-05] MEDS: TICAGRELOR 90 MG TABLET PO (20:53)
[2023-04-05] MEDS: Atorvastatin Calcium 40 MG Tablet PO (20:53)
[2023-04-05 21:20] LABS: Bedside Glucose 145 mg/dL (74-106)
[2023-04-06] VITALS (19 sets, daily range): BP systolic 83–122; BP diastolic 53–84; PULSE 66–87; RESP 14–20; TEMP 36.6–37.3; O2SAT 93–98; BMI 25.3
[2023-04-06] MEDS: EPTIFIBATIDE 75 MG/100 ML VIAL 12 MG CONT INF (02:30)
[2023-04-06 03:50] LABS: Hematocrit 36.8 % (40-54); Hemoglobin 12.5 g/dL (13.0-16.5); Mean Corpuscular Volume 88.2 fL (80-94); Platelet Count 283 K/mm3 (150-450); RBC Distribution Width CV 12.7 % (11.6-14.6); RBC Distribution Width SD 41.3 fl (35.1-43.9); Red Blood Count 4.17 M/mm3 (4.6-6.2); White Blood Count 19.3 K/mm3 (4.4-11.0)
[2023-04-06 04:26] LABS: ALB/GLOB Ratio 1.1 RATIO (0.9-2.4); AST(SGOT) 1371 U/L (15-37); Alanine Aminotransfer ALT/SGPT 280 U/L (16-61); Albumin, Serum 3.3 g/dL (3.2-5.0); Alkaline Phosphatase 56 U/L (45-117); Anion Gap 9 (5-15); BUN 20 mg/dL (7-18); BUN/Creat Ratio 15.6 RATIO (10-20); Calcium,Total 8.3 mg/dL (8.5-10.1); Chloride 105 mmol/L (98-107); Creatinine, Serum 1.28 mg/dL (0.70-1.30); EST Glomerular Filtration Rate 61 mL/min (>60); Est Glom Filt Rate - Afr Amer 74 mL/min (>60); Estimated Creatinine Clearance 59.38 ml/min; Glucose 155 mg/dL (74-106); Potassium 3.6 mmol/L (3.5-5.1); Protein, Total 6.3 g/dL (6.4-8.2); Sodium Level 139 mmol/L (136-145); Thyroid Stim Hormone (TSH) 1.52 uIU/mL (0.358-3.74)
--- NOTE | 2023-04-06 06:40 | PCM.PN.HOSP ---
Reason for Visit Reason for Visit: Diagnoses ST elevation (STEMI) myocardial infarction of unspecified site (04/05/23) Cardiac arrest, cause unspecified (04/05/23) Cardiogenic shock (04/05/23) Hyperglycemia, unspecified (04/05/23) Subjective Subjective Patient feeling better today, did have some problems with nausea yesterday but no further chest pain, no shortness of breath. Eating better today. Objective Data Objective Data Vital Signs: Vital Signs Temp Pulse Resp BP Pulse Ox O2 Del Method O2 Flow Rate 98 F 73 14 92/58 L 95 Room Air 4 04/06/23 06:00 04/06/23 06:00 04/06/23 06:00 04/06/23 06:00 04/06/23 06:00 04/06/23 06:00 04/05/23 15:47 FiO2 98 04/05/23 09:48 Oxygen Flow Rate (L/min) 4 Oxygen Delivery Method Room Air Weight: 75.614 kg Body Mass Index (BMI) 25.3 Intake & Output: Intake and Output for Last 24 Hours 04/04/23 04/05/23 04/06/23 23:59 23:59 23:59 Intake Total 96.8 / 96.8 142 / 142 Output Total 1300 / 1300 100 / 100 Balance -1203.2 / -1203.2 42 / 42 Lab / Micro Data Result Diagrams: 04/06/23 03:43 04/06/23 03:43 Labs: Laboratory Results - last 24 hr 04/05/23 09:45: WBC Cancelled, Corrected WBC Cancelled, RBC Cancelled, Hgb Cancelled, Hct Cancelled, MCV Cancelled, MCH Cancelled, MCHC Cancelled, RDW Std Deviation Cancelled, RDW Coeff of Stan Cancelled, Plt Count Cancelled, MPV Cancelled, Immature Gran % (Auto) Cancelled, Neut % (Auto) Cancelled, Lymph % (Auto) Cancelled, Smyth % (Auto) Cancelled, Eos % (Auto) Cancelled, Baso % (Auto) Cancelled, Neut # (Auto) Cancelled, Immature Gran # (Auto) Cancelled, Absolute Neuts (auto) Cancelled, Absolute Lymphs (auto) Cancelled, Absolute Monos (auto) Cancelled, Total Counted Cancelled, Neutrophils % (Manual) Cancelled, Band Neutrophils % Cancelled, Lymphocytes % (Manual) Cancelled, Monocytes % (Manual) Cancelled, Eosinophils % (Manual) Cancelled, Basophils % (Manual) Cancelled, Metamyelocytes % Cancelled, Myelocytes % Cancelled, Promyelocytes % Cancelled, Blast Cells % Cancelled, Plasma Cell % (Manual) Cancelled, Other Cells % Cancelled, Nucleated RBC % Cancelled, Lymphocytes # Cancelled, Basophils # Cancelled, Nucleated RBCs/100 WBC Cancelled, Differential Comment Cancelled, Diff Path Review Cancelled, Hypersegmented Neuts Cancelled, Atypical Lymphocytes Cancelled, Reactive Lymphocytes Cancelled, Smudge Cells Cancelled, Eosinophilia # Cancelled, Toxic Granulation Cancelled, Toxic Vacuolation Cancelled, Dohle Bodies Cancelled, Hailey Rods Cancelled, Platelet Estimate Cancelled, Plt Morphology Comment Cancelled, RBC Morphology Cancelled, Polychromasia Cancelled, Hypochromasia Cancelled, Poikilocytosis Cancelled, Basophilic Stippling Cancelled, Anisocytosis Cancelled, Microcytosis Cancelled, Macrocytosis Cancelled, Spherocytes Cancelled, Sickle Cells Cancelled, Target Cells Cancelled, Tear Drop Cells Cancelled, Ovalocytes Cancelled, Stomatocytes Cancelled, Fischer-Puako Bodies Cancelled, Liguori Cells Cancelled, Bite Cells Cancelled, Crenated Cell Cancelled, Acanthocytes (Spur) Cancelled, Rouleaux Cancelled, Schistocytes Cancelled 04/05/23 09:45: PT Cancelled, INR Cancelled, APTT Cancelled 04/05/23 09:45: Sodium Cancelled, Potassium Cancelled, Chloride Cancelled, Carbon Dioxide Cancelled, Anion Gap Cancelled, BUN Cancelled, Creatinine Cancelled, Estim Creat Clear Calc Cancelled, Est GFR (MDRD) Af Amer Cancelled, Est GFR (MDRD) Non-Af Cancelled, BUN/Creatinine Ratio Cancelled, Glucose Cancelled, Calcium Cancelled, Troponin I High Sens Cancelled 04/05/23 11:05: PT 17.0 H, INR 1.4, APTT > 200.0 H* 04/05/23 11:05: Sodium 134 L, Potassium 4.2, Chloride 104, Carbon Dioxide 20.0 L, Anion Gap 10, BUN 15, Creatinine 1.26, Estim Creat Clear Calc 60.32, Est GFR (MDRD) Af Amer 75, Est GFR (MDRD) Non-Af 62, BUN/Creatinine Ratio 11.9, Glucose 234 H, Calcium 8.4 L, Troponin I High Sens > 599432 H* 04/05/23 11:05: WBC 18.8 H, RBC 4.40 L, Hgb 13.2, Hct 37.5 L, MCV 85.2, MCH 30.0, MCHC 35.2, RDW Std Deviation 38.1, RDW Coeff of Stan 12.2, Plt Count 316, MPV 9.8, Immature Gran % (Auto) 0.700, Neut % (Auto) 82.5 H, Lymph % (Auto) 10.1 L, Smyth % (Auto) 4.5, Eos % (Auto) 1.1, Baso % (Auto) 1.1 H, Absolute Neuts (auto) 15.5 H, Absolute Lymphs (auto) 1.90, Nucleated RBC % 0 04/05/23 11:10: Activated Clotting Time 281 H 04/05/23 15:32: POC Glucose 141 H 04/05/23 15:40: WBC 18.2 H, RBC 4.48 L, Hgb 13.5, Hct 39.0 L, MCV 87.1, MCH 30.1, MCHC 34.6, RDW Std Deviation 39.5, RDW Coeff of Stan 12.4, Plt Count 299, MPV 10.2 04/05/23 15:40: Hemoglobin A1c 6.4 H 04/05/23 20:59: POC Glucose 145 H 04/06/23 03:43: WBC 19.3 H, RBC 4.17 L, Hgb 12.5 L, Hct 36.8 L, MCV 88.2, MCH 30.0, MCHC 34.0, RDW Std Deviation 41.3, RDW Coeff of Stan 12.7, Plt Count 283, MPV 10.0 04/06/23 03:43: Sodium 139, Potassium 3.6, Chloride 105, Carbon Dioxide 25.0, Anion Gap 9, BUN 20 H, Creatinine 1.28, Estim Creat Clear Calc 59.38, Est GFR (MDRD) Af Amer 74, Est GFR (MDRD) Non-Af 61, BUN/Creatinine Ratio 15.6, Glucose 155 H, Calcium 8.3 L, Total Bilirubin 0.80, AST 1371 H, ALT 280 H, Alkaline Phosphatase 56, Total Protein 6.3 L, Albumin 3.3, Globulin 3.0, Albumin/Globulin Ratio 1.1, TSH 1.52 Radiography Diagnostic Testing: Radiology Impression Chest X-Ray 04/05/23 14:10 IMPRESSION: Mild interstitial opacities, likely early pulmonary edema. Electronically Signed: Taylor De MD at 14:56 EDT Reading Location ID and State: [facility] / [place] Tel , Service support , Physical Exam Narrative General: Alert, oriented, no apparent distress HEENT: Atraumatic, normocephalic Eyes: Anicteric, normal conjunctiva, extraocular movements grossly intact Neck: Supple Respiratory: Clear to auscultation bilaterally, normal respiratory effort Cardiovascular: Regular rate and rhythm GI: Soft, nontender, nondistended Extremities: No edema Musculoskeletal: Moving all extremities Neuro: No overt focal neurological deficits Skin: No rashes appreciated Psych: Cooperative Assessment & Plan Assessment/Plan (1) Acute ST elevation myocardial infarction (STEMI): (2) Hyperglycemia: PLAN: Plan #STEMI/CAD status post 2 stents to LAD, proximal and mid -In ED had V1 through V6 as well as [address]ations with reciprocal changes in inferior leads -With subsequent cardiac arrest requiring CPR for 1 minute with ROSC -Had GWYN x2 to the LAD and mid and proximal portion and will need staged PCI for residual disease in RCA and circumflex -Aspirin, statin, Brilinta -Integrilin overnight -Due to hypotension had been on Levophed and remained in ICU, start low-dose beta-gene and ISAIAS inhibitor as tolerated -Cardiology consult -Echocardiogram #Cardiac arrest -PEA in [employer] Officer table while getting prepared for heart cath -Less than 1 minute of CPR with ROSC #Cardiogenic shock -Secondary to STEMI -Status post stent as above -Required Levophed, is improving #Leukocytosis -Suspect reactive, no signs symptoms of infection -Continue to monitor #DVT ppx: SCDs Hoa Anderson MD Time spent in the patient's overall evaluation,decision-making process, review of diagnostic data, adjustment of management, discussion with other providers, nursing nursing and ancillary staff involved in patient's care documentation, 30 minutes Charges/Coding Visit Charges Inpatient E&M: 52178 Subs Hosp L2
--- NOTE | 2023-04-06 08:14 | CRPHASE1 ---
Patient Communication Former Patient:: Phase I PHII Cardiac Rehab Discussed with Patient:: Yes Guide to Cardiac Rehab Given to Patient:: Yes Cardiac Rehab Facility Choice List Given to Patient:: Yes - pt chooses [facility] Choice Program [facility] CR PHII:: Communication Given to CR, Refer to [facility] Choice Program Other:: Communication Given to CR, With permission faxed order and referral information Refer Phase II Cardiac Rehab:: Yes Sessions:: 36 sessions - 3 days/wk, 12 weeks Cardiac Rehabilitation Info Cardiac Rehabilitation Program Information: Cardiac Rehab The cardiac rehab team at [facility] consists of highly skilled exercise physiologists, nurses, respiratory therapists and physicians working together with you. Our purpose is to help you have a full recovery and achieve the goals you set for yourself. Over the years many of our patients have returned to activities they assumed they would never do again! We can help restore your confidence and motivation to make lifestyle changes that can have a significant impact on your health and quality of life! We can help answer questions and concerns you may have about exercise, lifestyle, medications, diet, stress and anxiety which are common following a hospitalization. WE monitor ECG and vital signs during exercise and discuss your progress with you and report to your physician(s). Cardiac Rehab is proven to help reduce readmissions, improve functional capacity and lower recurrence of problems with your heart. Our Cardiac Rehab program is Certified by the [place] [employer] Pulmonary [employer] (AACVPR) and Accredited by the [place] [employer] through our [facility]. You can contact us at . We invite you to call us with your questions or to get started in our program. If you have other questions or concerns be sure to ask your physician/provider during your follow-up visit. WE look forward to seeing you!
--- NOTE | 2023-04-06 08:15 | CRPH1.INSTRU ---
General Education CAD and cardiac anatomy and function:: Needs reinforcement Explanation of diagnoses and procedures:: Needs reinforcement Sign/Symptoms of TX:: Needs reinforcement Antiplatelet therapy: Needs reinforcement Proper use of NTG-SL: Needs reinforcement Emergency procedures and activation of EMS: Needs reinforcement Compliance of all prescribed medications: Needs reinforcement
[2023-04-06 08:55] LABS: Bedside Glucose 133 mg/dL (74-106)
[2023-04-06] MEDS: TICAGRELOR 90 MG TABLET PO ×2 (09:28→21:56)
[2023-04-06] MEDS: Aspirin E.C. 81 MG Tablet PO (09:28)
--- NOTE | 2023-04-06 11:55 | CASEMGMT ---
SHANE MCKEON DC Planning Assessment: Face to Face with patient for initial transition planning/care coordination assessment. SHANE MCKEON introduced self and role at [facility], pt voices understanding. Pt is alert, oriented and agreeable to participating in assessment with spouse at bedside. Care providers, pharmacy, and demographics verified. Admitting dx: STEMI PCP: none, pt has used urgent care when needed. Specialists: none [facility]erred [facility]acy[facility] Insurance: MMO Prescription Benefit: yes Living Will/HPOA: none LNOK: Mari Living Arrangements: Pt lives with his in a single story home w/basement and 3-4 steps to enter. The garage is in the basement but there is parking available at ground level if needed. Pt was independent with all ADLs including self care and household tasks and was very active at baseline. Transportation: pt drives and denies any transportation concerns DME/HHC/SNF: pt states he has access to DME if needed but was not using any prior to admission Plan: Pt plans to return home with the support of his . Pt denies any needs at this time. SHANE MCKEON Interventions: PCP list provided to patient and assisted with identifying male providers per pt's preference. Encouraged pt to call and make follow-up appointment and appointment to establish care with a PCP. Discussed anticoagulants needed at discharge with [employer] savings card provided to pt. Will continue to monitor and assist with any additional dc needs as identified. Sophia Dee RN CM
[2023-04-06] MEDS: Insulin Lispro 100 UNIT/ML INSULN.PEN SC (12:43)
[2023-04-06 13:00] LABS: Bedside Glucose 153 mg/dL (74-106)
--- NOTE | 2023-04-06 14:57 | PN.CARD_ITS ---
Subjective Subjective Doing well. Denies any cardiac complaints. Off Levophed. Objective Data Vital Signs: Vital Signs Temp Pulse Resp BP Pulse Ox O2 Del Method O2 Flow Rate 99.1 F 83 16 110/79 94 Room Air 4 04/06/23 12:00 04/06/23 13:00 04/06/23 13:00 04/06/23 13:00 04/06/23 13:00 04/06/23 13:00 04/05/23 15:47 FiO2 98 04/05/23 09:48 Oxygen Flow Rate (L/min) 4 Oxygen Delivery Method Room Air Weight: 166 lb 11.205 oz Body Mass Index (BMI) 25.3 Intake & Output: Intake and Output for Last 24 Hours 04/04/23 04/05/23 04/06/23 23:59 23:59 23:59 Intake Total 96.8 / 96.8 142 / 142 Output Total 1300 / 1300 250 / 250 Balance -1203.2 / -1203.2 -108 / -108 Lab / Micro Data Result Diagrams: 04/06/23 03:43 04/06/23 03:43 Labs: Laboratory Results - last 24 hr 04/05/23 15:32: POC Glucose 141 H 04/05/23 15:40: WBC 18.2 H, RBC 4.48 L, Hgb 13.5, Hct 39.0 L, MCV 87.1, MCH 30.1, MCHC 34.6, RDW Std Deviation 39.5, RDW Coeff of Stan 12.4, Plt Count 299, MPV 10.2 04/05/23 15:40: Hemoglobin A1c 6.4 H 04/05/23 20:59: POC Glucose 145 H 04/06/23 03:43: WBC 19.3 H, RBC 4.17 L, Hgb 12.5 L, Hct 36.8 L, MCV 88.2, MCH 30.0, MCHC 34.0, RDW Std Deviation 41.3, RDW Coeff of Stan 12.7, Plt Count 283, MPV 10.0 04/06/23 03:43: Sodium 139, Potassium 3.6, Chloride 105, Carbon Dioxide 25.0, Anion Gap 9, BUN 20 H, Creatinine 1.28, Estim Creat Clear Calc 59.38, Est GFR (MDRD) Af Amer 74, Est GFR (MDRD) Non-Af 61, BUN/Creatinine Ratio 15.6, Glucose 155 H, Calcium 8.3 L, Total Bilirubin 0.80, AST 1371 H, ALT 280 H, Alkaline Phosphatase 56, Total Protein 6.3 L, Albumin 3.3, Globulin 3.0, Albumin/Globulin Ratio 1.1, TSH 1.52 04/06/23 08:32: POC Glucose 133 H 04/06/23 12:37: POC Glucose 153 H Cardiology Labs/Tests 04/05/23 15:40: WBC 18.2 H, RBC 4.48 L, Hgb 13.5, Hct 39.0 L, MCV 87.1, MCH 30.1, MCHC 34.6, Plt Count 299, MPV 10.2 04/05/23 15:40: Hemoglobin A1c 6.4 H 04/06/23 03:43: WBC 19.3 H, RBC 4.17 L, Hgb 12.5 L, Hct 36.8 L, MCV 88.2, MCH 30.0, MCHC 34.0, Plt Count 283, MPV 10.0 04/06/23 03:43: Sodium 139, Potassium 3.6, Chloride 105, Carbon Dioxide 25.0, Anion Gap 9, BUN 20 H, Creatinine 1.28, Est GFR (MDRD) Af Amer 74, Est GFR (MDRD) Non-Af 61, BUN/Creatinine Ratio 15.6, Glucose 155 H, Calcium 8.3 L, Total Bilirubin 0.80 Rhythm: EKG: ECHO: Stress Test: Cardiac Cath: PCI: CT Surgery: Holter monitor: EPS: PPM: CXR: Chest CT Scan: Radiography Diagnostic Testing: Radiology Impression Chest X-Ray 04/05/23 14:10 IMPRESSION: Mild interstitial opacities, likely early pulmonary edema. Electronically Signed: Taylor De MD at 14:56 EDT Reading Location ID and State: [facility] / [place] Tel , Service support , Physical Exam Const alert and oriented x3 HEENT normocephalic Eyes no scleral icterus Resp normal respiratory effort and clear to auscultation bilaterally Cardio regular rate Assessment & Plan Assessment/Plan (1) Acute ST elevation myocardial infarction (STEMI): PLAN: Treated with drug-eluting stents to the LAD. Patient has residual disease in the RCA and also the circumflex which will be treated in a staged manner as an outpatient. We will add low-dose beta-gene and SIAIAS inhibitor (2) Cardiac arrest: PLAN: Patient went into PEA on the cath table while he was getting prepped for the procedure. CPR was done for less than a minute and patient regained spon taneous circulation. (3) Cardiogenic shock: PLAN: Off Levophed. We will add beta-gene and ISAIAS inhibitor. Patient does have severe LV dysfunction on 2D echo. He will need a follow-up echo in about 3 months. Charges/Coding Visit Charges Inpatient E&M: 25443 Subs Hosp L2
[2023-04-06 17:05] LABS: Bedside Glucose 132 mg/dL (74-106)
[2023-04-06] MEDS: Metoprolol(XL)Succ 25 MG Tablet 12.5 MG PO (17:20)
[2023-04-06] MEDS: Atorvastatin Calcium 40 MG Tablet PO (21:56)
[2023-04-06] MEDS: Lisinopril 2.5 MG Tablet PO (22:12)
[2023-04-06 23:20] LABS: Bedside Glucose 134 mg/dL (74-106)
[2023-04-07 04:00] VITALS: BP 103/72; PULSE 76; RESP 15; TEMP 37; O2SAT 96
[2023-04-07 05:38] LABS: Absolute Lymphocyte Count 1.38 X10^3/uL (0.83-4.51); Absolute Neutrophil Count 11.3 X10^3/uL (2.0-7.7); Basophil# 0.06 X10^3/uL; Basophil% 0.4 % (0-1); Eosinophil# 0.07 X10^3/uL; Eosinophils% 0.5 % (0-5); Hematocrit 32.8 % (40-54); Hemoglobin 11.3 g/dL (13.0-16.5); Lymphocyte # 1.38 X10^3/ul (0.83-4.51); Lymphocyte % 9.8 % (19-41); Mean Corp Hgb Conc 34.5 g/dL (32-36); Mean Corpuscular Hgb 30.5 pg (27.0-32.0); Mean Corpuscular Volume 88.6 fL (80-94); Mean Platelet Vol. 10.3 fl (6.2-12.0); Monocyte# 1.26 X10^3/uL; Monocyte% 8.9 % (0-10); NRBC Flagged by Analyzer 0 % (0-5); Neutrophil # 11.27 X10^3/uL (2.7-7.7); Neutrophil % 79.8 % (47-70); Platelet Count 223 K/mm3 (150-450); RBC Distribution Width CV 12.5 % (11.6-14.6); RBC Distribution Width SD 40.7 fl (35.1-43.9); White Blood Count 14.1 K/mm3 (4.4-11.0)
[2023-04-07 05:42] VITALS: BMI 25.3
[2023-04-07 06:24] LABS: ALB/GLOB Ratio 1.1 RATIO (0.9-2.4); AST(SGOT) 509 U/L (15-37); Alanine Aminotransfer ALT/SGPT 192 U/L (16-61); Albumin, Serum 3.3 g/dL (3.2-5.0); Alkaline Phosphatase 54 U/L (45-117); Anion Gap 6 (5-15); BUN 20 mg/dL (7-18); BUN/Creat Ratio 16.8 RATIO (10-20); Calcium,Total 8.6 mg/dL (8.5-10.1); Chloride 101 mmol/L (98-107); Creatinine, Serum 1.19 mg/dL (0.70-1.30); EST Glomerular Filtration Rate 66 mL/min (>60); Est Glom Filt Rate - Afr Amer 80 mL/min (>60); Estimated Creatinine Clearance 63.87 ml/min; Globulin 3.1 g/dL (2.2-4.2); Glucose 141 mg/dL (74-106); Potassium 3.5 mmol/L (3.5-5.1); Protein, Total 6.4 g/dL (6.4-8.2); Sodium Level 135 mmol/L (136-145)
[2023-04-07 06:51] LABS: Bedside Glucose 138 mg/dL (74-106)
[2023-04-07 07:40] VITALS: BP 96/68; PULSE 81; RESP 16; TEMP 36.9; O2SAT 96
[2023-04-07] MEDS: Lisinopril 2.5 MG Tablet PO (07:53)
[2023-04-07] MEDS: Aspirin E.C. 81 MG Tablet PO (07:53)
[2023-04-07 08:45] VITALS: BP 96/68; PULSE 81
[2023-04-07] MEDS: Metoprolol(XL)Succ 25 MG Tablet 12.5 MG PO (08:45)
[2023-04-07] MEDS: TICAGRELOR 90 MG TABLET PO (08:45)
--- NOTE | 2023-04-07 09:50 | CL.I_ITS ---
Patient Name: ALISON HARDY Study Date: 04/05/2023 Performing: Nicki Aldridge MD Ht: 68 inches 172.72 cm : 1960 Wt: 153.88 lbs 69.8 kg Age: 62 Gender: male BSA: 1.83 PROCEDURE(S) PERFORMED [id number]-([id number])AMI, GWYN OR PTCA, ARTERY/GRAFT, SINGLE VESSEL DC02-([id number])LHC/COR CLINICAL PROFILE AND CO-MORBIDITIES Indications: ACS <= 24 hrs Heart Failure: Newly Diagnosed: Yes, Heart Failure Type: Systolic Stress/Imaging Stress/Image Study Performed: No CAD Presentations: STEMI. Symptom onset Date/Time: 04/05/23 8:15:00 Time Estimated CONCLUSIONS CAD as described. Successful PCI of proximal and mid LAD with GWYN. RECOMMENDATIONS Pt. should return for PCI of pRCA +/- OM2 in about 2-3 weeks DESCRIPTION OF PROCEDURE The patient arrived to the procedure lab. The risks and benefits of the procedure as well as a full description of our services here and lack of surgical backup were fully explained to the patient and/or their significant other prior to the catheterization. The Timeout was completed, verifying the correct patient and procedure. The patient's procedural site was prepped and draped in the usual fashion. Local anesthetic was given subcutaneously to right radial region with Lidocaine 2%. Using a modified Seldinger technique, arterial access was obtained via the right radial artery, a 6Fr sheath was inserted., arterial access was obtained via the right femoral artery, a 6Fr sheath was inserted.. Left Coronary Artery selective angiography was performed in multiple views using a 6 Fr. XB 3 guide catheter. Right Coronary Artery selective angiography was then performed in multiple views using a 5 Fr. JR 4 catheterThe images were reviewed and options discussed. A decision was then made to proceed with an Intervention, IVUS or other adjunct procedure. XB 3.0 Guide catheter was inserted and engaged into the LCA. BMW Guide wire was advanced to the LAD. Priority One inserted Pass # 1 Priority One Removed Angiogram performed pre balloon dilatation. 2 x 12 Emerge Balloon catheter was inserted. Balloon catheter was advanced across lesion in the LAD, proximal. PTCA balloon inflated at 6 atms for 29 secs. PTCA balloon inflated at 6 atms for 17 secs. Balloon catheter was repositioned to additional lesion in the LAD, proximal. Angiogram performed post balloon dilatation. 3.5 x 22 [place] Drug Eluting stent was advanced across the lesion in the LAD, proximal. Angiogram performed post stent deployment. 2.0 x 12 [place] Drug Eluting stent was advanced across the lesion in the LAD, mid. Priority One inserted Pass # 2 Priority One Removed 2.25 x 8 [place] Drug Eluting stent was inserted. Drug Eluting stent was advanced across the lesion in the LAD, mid. Angiogram performed post stent deployment. Contrast was injected through the sheath and the Right Iliac and Femoral artery were assessed for possible closure device. The fem arterial sheath was pulled and a Perclose closure device was deployed for hemostasis. The arterial sheath was pulled and a TR Band was applied for hemostasis. 12cc air inserted. CORONARY ANGIOGRAPHY DOMINANCE: Right Dominant LEFT HEART ASSESSMENT Left Ventricular Ejection Fraction: Not assessed LEFT MAIN: Mild luminal irregularities LEFT ANTERIOR DESCENDING ARTERY: PROX LAD: 100 % Stenosis MID LAD: 80 % Stenosis CIRCUMFLEX ARTERY: Mild luminal irregularities OM 2: Proximal - 70 % Stenosis RIGHT CORONARY ARTERY: PROX RCA: 90 % Stenosis INTERVENTION INFORMATION LESION SITE: LAD (Mid) Lesion Complexity: High/C, chronic total occlusion: No, lesion at bifurcation: No, thrombus present: Yes, lesion length: 18 mm, culprit lesion: Yes, Previously treated lesion: No Pre Stenosis: 100 % Pre intervention LUIS ARMANDO flow: 0 PROCEDURE: Thrombectomy, Drug Eluting Stent with pre dilatation. Post Stenosis: 0 % Post intervention LUIS ARMANDO flow: 3 Lesion Devices: Cordis 6 Fr XB3.0 100cm Guide Catheter Philip .014 190cm BMW [place] Straight Terumo Priority One Aspiration Catheter Td Sci EMERGE MR 2.00x12 BALLOON Medtronic Resolute Jack RX GWYN 2.0x12 LESION SITE: LAD (Proximal) Lesion Complexity: High/C, chronic total occlusion: No, lesion at bifurcation: No, thrombus present: No, lesion length: 20 mm, culprit lesion: Yes, Previously treated lesion: No Pre Stenosis: 80 % Pre intervention LUIS ARMANDO flow: 0 PROCEDURE: Drug Eluting Stent with pre dilatation. Post Stenosis: 0 % Post intervention LUIS ARMANDO flow: 3 Lesion Devices: Cordis 6 Fr XB3.0 100cm Guide Catheter Philip .014 190cm BMW [place] Straight Td Sci EMERGE MR 2.00x12 BALLOON Medtronic Resolute Jack RX GWYN 3.5x22 Medtronic Resolute Jack RX GWYN 2.25x08 COMPLICATIONS No Complications PROCEDURE MEDICATIONS Oxygen: 2 L/min via nasal cannula Oxygen: 4 L/min via nasal cannula Heparin given IA 04/05/2023 10:03:26 Nitro 100 mcg IC 04/05/2023 10:14:06 Nitro 100 mcg IC 04/05/2023 10:14:06 Zofran 4 mg IV 04/05/2023 10:01:36 IV Bolus: .9 NaCl 400 ml total 04/05/2023 11:10:53 SUMMARY OF HEMODYNAMIC DATA Time AIR REST ECG 09:59:28 AO 101/69 (83) SA 10:05:14 Signed By Nicki Aldridge MD On 04/07/2023 09:48:59 Nicki Aldridge MD
--- NOTE | 2023-04-07 10:00 | EKG12_ITS ---
Test Reason : AM EKG Blood Pressure : / mmHG Vent. Rate : 077 BPM Atrial Rate : 077 BPM P-R Int : 146 ms QRS Dur : 084 ms QT Int : 446 ms P-R-T Axes : 050 -14 093 degrees QTc Int : 504 ms Normal sinus rhythm Low voltage QRS Anteroseptal infarct , possibly acute Lateral injury pattern Prolonged QT ACUTE [place] / STEMI Abnormal ECG Confirmed by MEI DICKSON, CARLITOS ([id number]), news editor JOEL DAS ([id number]) on 04/08/2023 9:27:58 AM Referred By: Alysia Aldridge Confirmed By:CARLITOS HURLEY MD
[2023-04-07 12:00] VITALS: PULSE 75
[2023-04-07] MEDS: Insulin Lispro 100 UNIT/ML INSULN.PEN SC (12:20)
[2023-04-07 12:22] VITALS: BP 101/72; PULSE 75; RESP 14; TEMP 36.8; O2SAT 97
[2023-04-07 12:33] LABS: Bedside Glucose 183 mg/dL (74-106)
--- NOTE | 2023-04-07 13:35 | DCINST_ITS ---
Discharge Instructions Diet Discharge Diet: - (DASH diet, 3000 mg sodium restriction, 2 L fluid restriction) Activity Discharge Activity: - (Light activity for 2 to 3 days following your heart catheterization. Unless your job involves lifting return to normal activities within 2 days) Follow Up Care Test Results: Test results from this visit will be discussed in further detail at your follow- up appointment, if applicable. Discharge Plan Admission Admit Date/Time: 04/05/23 13:55 Primary Reason for Your Visit: Chest pain Attending Provider: Hoa Anderson Primary Care Provider: Care Physician,No Primary Consulting Providers: Alysia Aldridge Instructions Patient Instructions: Heart Attack Dc Additional Instructions / Restrictions: DISCHARGE INSTRUCTIONS PLEASE READ *Please take this with you to your next doctors appointment* -Please follow-up with cardiology upon discharge. Please call their office to schedule hospital follow-up appointment upon discharge. You will establish with a new provider as Dr. Aldridge does not see patients in the office. -You have multiple new medications for your heart, please take these as prescribed. These have been sent in to the [facility] in [place] per your preference. -Due to your heart attack you have a decrease in your heart function. Over time your heart will have the chance to recover with blood pressure management and the medications prescribed. A picture of your heart (echocardiogram) will likely be repeated in 3 months, this will be coordinated through your cardiology office -Weigh yourself every day. A sudden weight gain can mean you are retaining fluid. Weigh yourself at the same time of day and in the same kind of clothes. Ideally, weigh yourself first thing in the morning after you empty your bladder, but before you eat breakfast. -Please call your physician if your weight goes up by more than 2 pounds in 1 day or 5 pounds in 1 week. This can be a sign that you are retaining more fluid than you should be. Clues to weight gain include checking your ankles for swelling, or noticing you are short of breath when you lie down -Please limit your sodium intake to less than 3 g/day. Here are tips: Limit canned, dried, packaged, and fast foods. Don't add salt to your food at the table. Season foods with herbs instead of salt when you cook. When you eat out, ask that the catering chef not add any salt to your dish. Don't eat fried or greasy foods. Be careful of bottled beverages. They can contain a lot of salt -Call 911 right away if you have: -Severe shortness of breath, such that you can't catch your breath even while resting -Severe chest pain that does not resolve with rest or nitroglycerin -[place], foamy mucus with cough and shortness of breath -An ongoing rapid or irregular heartbeat -Passing out or fainting -Stroke symptoms such as sudden numbness or weakness on one side of your face, arm, or leg or sudden confusion, trouble speaking or vision changes -Do only light and easy activities for 2 to 3 days after your stent placement, ask for help with chores and errands while you recover and have someone drive you to your appointments. -Unless your job involves lifting you may return to normal activities within 2 days -Please take your medications as prescribed, do not skip doses -Check your incisions every day for signs of infection which would include redness, swelling, leaking. It is normal to have a small bruise or bump where the catheter was placed but a bruise that is getting larger is not normal. Please tell your healthcare team about this. Please proceed to the emergency department if you have uncontrollable bleeding from the site. -It is important to eat a diet that is low in fat, salt, and cholesterol -You will be set up with cardiac rehab upon discharge, it is important that you follow-up -Okay to shower from the day after your heart catheterization but keep your incision site clean and dry. -If you do not have a primary care physician of list of local primary care physicians can be provided for you upon discharge. Please ask for this list prior to discharge -Please call your primary care provider's office upon discharge to schedule a hospital follow up within 1 week. -For any concerning signs or symptoms please call 911 or proceed to the nearest emergency department Discharge Orders/Prescriptions Prescriptions: New atorvastatin 40 mg Tablet 40 mg PO QHS 30 Days Qty: 30 0RF aspirin 81 mg Tablet,Delayed Release (Dr/Ec) 81 mg PO DAILY 30 Days Qty: 30 0RF metoprolol succinate 25 mg Tablet Extended Release 24 Hr 12.5 mg PO DAILY 30 Days Qty: 15 0RF lisinopril 2.5 mg Tablet 2.5 mg PO DAILY 30 Days Qty: 30 0RF Brilinta 90 mg Tablet 90 mg PO BID 30 Days Qty: 60 0RF Referrals / Follow Up: Shun Roman MD [Med Staff - Active Staff] - See Referral Note (-Please follow- up with cardiology upon discharge. Please call their office to schedule hospital follow-up appointment upon discharge. You will establish with a new provider as Dr. Aldridge does not see patients in the office.) Care Physician,No Primary [Primary Care Provider] - See Referral Note (-If you do not have a primary care physician of list of local primary care physicians can be provided for you upon discharge. Please ask for this list prior to discharge) Disposition Disposition (needs filled in before D/C Order can be placed): Home, Self Care
[2023-04-07 13:38] VITALS: BP 100/72; PULSE 78; RESP 14; TEMP 37.1; O2SAT 95
--- NOTE | 2023-04-07 13:39 | DS.PCM_ITS ---
Providers Date of Admission: 04/05/23 Date of Discharge: 04/07/23 Primary Care Physician: Belia Primary Care Phys Consultations 04/05/23 14:04 Consult: Cardiology Routine Consulting Provider: Alysia Aldridge Reason for Consult: STEMI EMERGENT Consult: No MD Notified: Yes Date Notified: 04/05/23 Time Notified: 13:59 Method of Notification: ED Physician Initiated Reason For Visit: STEMI Diagnosis Discharge Diagnosis (1) Acute ST elevation myocardial infarction (STEMI): Status: Acute Code(s): I21.3 - ST elevation (STEMI) myocardial infarction of unspecified site (2) Cardiac arrest: Status: Acute Code(s): I46.9 - Cardiac arrest, cause unspecified (3) Cardiogenic shock: Status: Acute Code(s): R57.0 - Cardiogenic shock (4) Combined systolic and diastolic heart failure: Status: Acute Code(s): I50.40 - Unspecified combined systolic (congestive) and diastolic (congestive) heart failure Plan #STEMI/CAD status post 2 stents to LAD, proximal and mid #Cardiac arrest secondary to STEMI #Cardiogenic shock secondary to STEMI/acute ischemia #acute hfref with possible chronic hfpef, not in exacerbation Medications at Discharge Home Medications aspirin 81 mg tablet,delayed release 81 mg PO DAILY 30 days #30 tabs 04/07/23 atorvastatin 40 mg tablet 40 mg PO QHS 30 days #30 tabs 04/07/23 lisinopril 2.5 mg tablet 2.5 mg PO DAILY 30 days #30 tabs 04/07/23 metoprolol succinate 25 mg tablet,extended release 24 hr 12.5 mg PO DAILY 30 days #15 tabs 04/07/23 ticagrelor 90 mg tablet (Brilinta) 90 mg PO BID 30 days #60 tabs 04/07/23 Hospital Course Procedures Cardiac catheterization, CPR performed and Transthoracic echo Summary of Care Provided Hospital Course: 62-year-old male presented 04/05 with chest pain on exertion with pain down the right side of arm and he became diaphoretic and had nausea vomiting. In ED had V1 through V6 as well as [address]ations with reciprocal changes in inferior leads. With subsequent cardiac arrest requiring CPR for 1 minute with ROSC. -Had GWYN x2 to the LAD and mid and proximal portion and will need staged PCI for residual disease in RCA and circumflex. Started on aspirin, statin, Brilinta. Did require Levophed in the ICU but was quickly transitioned off and started on GDMT. Echo obtained after STEMI showed EF of 35% with stage II diastolic dysfunction. On day of discharge had no complaints, did not appear volume overloaded. Discussed with cardiology, okay with DC and will be set up through their office for staged PCI and can follow-up in their office. D ischarge instructions as follows: -Please follow-up with cardiology upon discharge.? Please call their office to schedule hospital follow-up appointment upon discharge.? You will establish with a new provider as Dr. Aldridge does not see patients in the office. -You have multiple new medications for your heart, please take these as prescribed.? These have been sent in to the [facility] in [place] per your preference. -Due to your heart attack you have a decrease in your heart function.? Over time your heart will have the chance to recover with blood pressure management and the medications prescribed.? A picture of your heart (echocardiogram) will likely be repeated in 3 months, this will be coordinated through your cardiology office -Weigh yourself every day. A sudden weight gain can mean you are retaining fluid. Weigh yourself at the same time of day and in the same kind of clothes. Ideally, weigh yourself first thing in the morning after you empty your bladder, but before you eat breakfast. -Please call your physician if your weight goes up by more than 2 pounds in 1 day or 5 pounds in 1 week. This can be a sign that you are retaining more fluid than you should be. Clues to weight gain include checking your ankles for swelling, or noticing you are short of breath when you lie down -Please limit your sodium intake to less than 3 g/day. Here are tips: Limit canned, dried, packaged, and fast foods. Don't add salt to your food at the table. Season foods with herbs instead of salt when you cook. When you eat out, ask that the record clerk not add any salt to your dish. Don't eat fried or greasy foods. Be careful of bottled beverages. They can contain a lot of salt -Call 911 right away if you have: -Severe shortness of breath, such that you can't catch your breath even while resting -Severe chest pain that does not resolve with rest or nitroglycerin -[place], foamy mucus with cough and shortness of breath -An ongoing rapid or irregular heartbeat -Passing out or fainting -Stroke symptoms such as sudden numbness or weakness on one side of your face, arm, or leg or sudden confusion, trouble speaking or vision changes -Do only light and easy activities for 2 to 3 days after your stent placement, ask for help with chores and errands while you recover and have someone drive you to your appointments. -Unless your job involves lifting you may return to normal activities within 2 days -Please take your medications as prescribed, do not skip doses -Check your incisions every day for signs of infection which would include redness, swelling, leaking.? It is normal to have a small bruise or bump where the catheter was placed but a bruise that is getting larger is not normal.? Please tell your healthcare team about this.? Please proceed to the emergency department if you have uncontrollable bleeding from the site. -It is important to eat a diet that is low in fat, salt, and cholesterol -You will be set up with cardiac rehab upon discharge, it is important that you follow-up -Okay to shower from the day after your heart catheterization but keep your incision site clean and dry. -If you do not have a primary care physician of list of local primary care physicians can be provided for you upon discharge.? Please ask for this list prior to discharge -Please call your primary care provider's office upon discharge to schedule a hospital follow up within 1 week. -For any concerning signs or symptoms please call 911 or proceed to the nearest emergency department Physical Exam Narrative General: Alert, oriented, no apparent distress HEENT: Atraumatic, normocephalic Eyes: Anicteric, normal conjunctiva, extraocular movements grossly intact Neck: Supple Respiratory: Clear to auscultation bilaterally, normal respiratory effort Cardiovascular: Regular rate and rhythm GI: Soft, nontender, nondistended Extremities: No edema Musculoskeletal: Moving all extremities Neuro: No overt focal neurological deficits Skin: No rashes appreciated Psych: Cooperative Weight / BMI Weight Weight: 75.7 kg Body Mass Index (BMI) 25.3 ABG / Lab / Microbiology Data Result Diagrams: 04/07/23 05:18 04/07/23 05:18 Laboratory: Laboratory Results - last 24 hr 04/06/23 16:45: POC Glucose 132 H 05/24/23 21:46: POC Glucose 134 H 04/07/23 05:18: WBC 14.1 H, RBC 3.70 L, Hgb 11.3 L, Hct 32.8 L, MCV 88.6, MCH 30.5, MCHC 34.5, RDW Std Deviation 40.7, RDW Coeff of Stan 12.5, Plt Count 223, MPV 10.3, Immature Gran % (Auto) 0.600, Neut % (Auto) 79.8 H, Lymph % (Auto) 9.8 L, [place] % (Auto) 8.9, Eos % (Auto) 0.5, Baso % (Auto) 0.4, Absolute Neuts (auto) 11.3 H, Absolute Lymphs (auto) 1.38, Nucleated RBC % 0 04/07/23 05:18: Sodium 135 L, Potassium 3.5, Chloride 101, Carbon Dioxide 28.0, Anion Gap 6, BUN 20 H, Creatinine 1.19, Estim Creat Clear Calc 63.87, Est GFR (MDRD) Af Amer 80, Est GFR (MDRD) Non-Af 66, BUN/Creatinine Ratio 16.8, Glucose 141 H, Calcium 8.6, Total Bilirubin 1.40 H, AST 509 H, ALT 192 H, Alkaline Phosphatase 54, Total Protein 6.4, Albumin 3.3, Globulin 3.1, Albumin/Globulin Ratio 1.1 04/07/23 06:28: POC Glucose 138 H 04/07/23 12:14: POC Glucose 183 H Radiography Diagnostic Testing: Radiology Impression Echocardiogram 04/05/23 14:04 Interpretation Summary The estimated ejection fraction is 35 %. Stage 2 diastolic dysfunction. Severe hypokinesis of the apex, septum and anterior dennison Mild (1+) mitral valve insufficiency. Ordering Physician: Andrew Downs Referring Physician: Alysia Aldridge Performed By: Latoya Garcia RCS D/C Instructions Discharge Diet: - (DASH diet, 3000 mg sodium restriction, 2 L fluid restriction) Meaningful Use Info Meaningful Use Diagnoses (Choose all that apply): AMI AMI/Post PCI/Angioplasty Aspirin given w/in 24hrs of arrival?: Yes ASA at discharge?: Yes Antiplatelet Therapy at Discharge:: Yes Statins at discharge?: Yes [place]/ARB at discharge?: Yes Beta Tracie at discharge?: Yes Done w/ Acute ME measure.: Yes Documented LVEF (%): 35 Discharge Plan Admission Admit Date/Time: 04/05/23 13:55 Primary Reason for Your Visit: Chest pain Attending Provider: Hoa Anderson Primary Care Provider: Care Physician,Belia Primary Consulting Providers: Alysia Aldridge Instructions Patient Instructions: Heart Attack Dc Additional Instructions / Restrictions: DISCHARGE INSTRUCTIONS PLEASE READ *Please take this with you to your next doctors appointment* -Please follow-up with cardiology upon discharge. Please call their office to schedule hospital follow-up appointment upon discharge. You will establish with a new provider as Dr. Aldridge does not see patients in the office. -You have multiple new medications for your heart, please take these as prescribed. These have been sent in to the [facility] in [place] per your preference. -Due to your heart attack you have a decrease in your heart function. Over time your heart will have the chance to recover with blood pressure management and the medications prescribed. A picture of your heart (echocardiogram) will likely be repeated in 3 months, this will be coordinated through your cardiology office -Weigh yourself every day. A sudden weight gain can mean you are retaining fluid. Weigh yourself at the same time of day and in the same kind of clothes. Ideally, weigh yourself first thing in the morning after you empty your bladder, but before you eat breakfast. -Please call your physician if your weight goes up by more than 2 pounds in 1 day or 5 pounds in 1 week. This can be a sign that you are retaining more fluid than you should be. Clues to weight gain include checking your ankles for swelling, or noticing you are short of breath when you lie down -Please limit your sodium intake to less than 3 g/day. Here are tips: Limit canned, dried, packaged, and fast foods. Don't add salt to your food at the table. Season foods with herbs instead of salt when you cook. When you eat out, ask that the record clerk not add any salt to your dish. Don't eat fried or greasy foods. Be careful of bottled beverages. They can contain a lot of salt -Call 911 right away if you have: -Severe shortness of breath, such that you can't catch your breath even while resting -Severe chest pain that does not resolve with rest or nitroglycerin -[place], foamy mucus with cough and shortness of breath -An ongoing rapid or irregular heartbeat -Passing out or fainting -Stroke symptoms such as sudden numbness or weakness on one side of your face, arm, or leg or sudden confusion, trouble speaking or vision changes -Do only light and easy activities for 2 to 3 days after your stent placement, ask for help with chores and errands while you recover and have someone drive you to your appointments. -Unless your job involves lifting you may return to normal activities within 2 days -Please take your medications as prescribed, do not skip doses -Check your incisions every day for signs of infection which would include redness, swelling, leaking. It is normal to have a small bruise or bump where the catheter was placed but a bruise that is getting larger is not normal. Please tell your healthcare team about this. Please proceed to the emergency department if you have uncontrollable bleeding from the site. -It is important to eat a diet that is low in fat, salt, and cholesterol -You will be set up with cardiac rehab upon discharge, it is important that you follow-up -Okay to shower from the day after your heart catheterization but keep your incision site clean and dry. -If you do not have a primary care physician of list of local primary care physicians can be provided for you upon discharge. Please ask for this list prior to discharge -Please call your primary care provider's office upon discharge to schedule a hospital follow up within 1 week. -For any concerning signs or symptoms please call 911 or proceed to the nearest emergency department Discharge Orders/Prescriptions Prescriptions: New atorvastatin 40 mg Tablet 40 mg PO QHS 30 Days Qty: 30 0RF aspirin 81 mg Tablet,Delayed Release (Dr/Ec) 81 mg PO DAILY 30 Days Qty: 30 0RF metoprolol succinate 25 mg Tablet Extended Release 24 Hr 12.5 mg PO DAILY 30 Days Qty: 15 0RF lisinopril 2.5 mg Tablet 2.5 mg PO DAILY 30 Days Qty: 30 0RF Brilinta 90 mg Tablet 90 mg PO BID 30 Days Qty: 60 0RF Referrals / Follow Up: Shun Roman MD [Med Staff - Active Staff] - See Referral Note (-Please follow- up with cardiology upon discharge. Please call their office to schedule hospital follow-up appointment upon discharge. You will establish with a new provider as Dr. Aldridge does not see patients in the office.) Care Physician,No Primary [Primary Care Provider] - See Referral Note (-If you do not have a primary care physician of list of local primary care physicians can be provided for you upon discharge. Please ask for this list prior to discharge) Disposition Disposition (needs filled in before D/C Order can be placed): Home, Self Care Charges/Coding Visit Charges Inpatient E&M: 79126 Disch Hosp >30min
--- NOTE | 2023-04-07 16:01 | NURSING ---
reviewed discharge instructions with patient voiced understanding, awaiting for transport home
--- NOTE | 2023-04-07 17:22 | NURSING ---
discharged per wheelchair in care of with instructions
== END 2023-04-07 17:22 | disposition home or self-care (01) | DRG 246 ==
LOC: ED 09:51 → ICU 11:00 → PCU 04-06 15:57
PROVIDERS: Admitting Provider Specialist; Emergency Provider Emergency Medicine; Referring Provider Specialist; Visit Provider Internal Medicine
DX: I21.02 ST elevation (STEMI) myocardial infarction involving left anterior descending coronary artery (principal); R57.0 Cardiogenic shock; I46.2 Cardiac arrest due to underlying cardiac condition; I50.21 Acute systolic (congestive) heart failure; I50.32 Chronic diastolic (congestive) heart failure; I25.10 Atherosclerotic heart disease of native coronary artery without angina pectoris; E66.9 Obesity, unspecified; R73.9 Hyperglycemia, unspecified; Z68.25 Body mass index [BMI] 25.0-25.9, adult; Z79.02 Long term (current) use of antithrombotics/antiplatelets; Z79.82 Long term (current) use of aspirin; Z79.899 Other long term (current) drug therapy
CPT/HCPCS: 36415; 71045; 80048; 80053; 82962; 83036; 84443; 84484; 85025; 85027; 85347; 85610; 85730; 92941; 93005; 93306; 93454; 94668; 97802; 99285; C1757; C1874; J7030; J7050; Q9957; Q9967; A4216; C1725; C1760; C1769; C1887; C1894; C8929; C9606; J1327; J2405

== ENCOUNTER → 2023-04-18 | Outpatient (CLI) | payer OTHER, SELFPAY ==
--- NOTE | 2023-04-18 13:13 | RAD_ITS ---
STUDY: X-RAY CHEST REASON FOR EXAM: Male, 62 years old. Cough/shortness of breath TECHNIQUE: PA and lateral views of the chest. COMPARISON: Comparison is made with prior study dated April 05, 2023. FINDINGS: New small bilateral pleural effusions left greater than right. Bibasilar atelectasis superimposed on mild vascular congestion. Normal size heart. Normal mediastinum and daniela. Normal visualized pulmonary arteries. Normal visualized aortic arch and descending thoracic aorta. Normal visualized thoracic spine. Normal visualized ribs, clavicles, and shoulders. There is no demonstrated abnormality of the visualized soft tissue structures of the upper abdomen. RAD/Chest PA and Lateral IMPRESSION: Vascular congestion and CHF with small bilateral pleural effusions and bibasilar atelectasis worse on the left side. Electronically Signed: Enio Lester MD at 13:35 EDT ,
== END | disposition home or self-care (01) ==
LOC: RAD 13:10
PROVIDERS: PCP Internal Medicine; Referring Provider Internal Medicine; Visit Provider Internal Medicine
DX: I50.20 Unspecified systolic (congestive) heart failure (principal)
CPT/HCPCS: 71046

== ENCOUNTER → 2023-04-21 | Outpatient (CLI) | payer OTHER, SELFPAY ==
[2023-04-21 10:53] LABS: Absolute Lymphocyte Count 1.41 X10^3/uL (0.83-4.51); Absolute Neutrophil Count 6.4 X10^3/uL (2.0-7.7); Basophil# 0.13 X10^3/uL; Basophil% 1.4 % (0-1); Eosinophil# 0.34 X10^3/uL; Eosinophils% 3.7 % (0-5); Hematocrit 38.1 % (40-54); Hemoglobin 12.6 g/dL (13.0-16.5); Lymphocyte # 1.41 X10^3/ul (0.83-4.51); Lymphocyte % 15.5 % (19-41); Mean Corp Hgb Conc 33.1 g/dL (32-36); Mean Corpuscular Volume 90.7 fL (80-94); Mean Platelet Vol. 9.8 fl (6.2-12.0); Monocyte% 8.8 % (0-10); NRBC Flagged by Analyzer 0 % (0-5); Neutrophil # 6.35 X10^3/uL (2.7-7.7); Neutrophil % 70.2 % (47-70); Platelet Count 518 K/mm3 (150-450); RBC Distribution Width CV 12.7 % (11.6-14.6); RBC Distribution Width SD 41.7 fl (35.1-43.9); White Blood Count 9.1 K/mm3 (4.4-11.0)
[2023-04-21 11:41] LABS: ALB/GLOB Ratio 0.9 RATIO (0.9-2.4); AST(SGOT) 29 U/L (15-37); Alanine Aminotransfer ALT/SGPT 32 U/L (16-61); Albumin, Serum 3.7 g/dL (3.2-5.0); Alkaline Phosphatase 104 U/L (45-117); Anion Gap 5 (5-15); BUN 12 mg/dL (7-18); BUN/Creat Ratio 10.3 RATIO (10-20); Calcium,Total 9.1 mg/dL (8.5-10.1); Chloride 102 mmol/L (98-107); Cholesterol 74 mg/dL (200); Creatinine, Serum 1.17 mg/dL (0.70-1.30); EST Glomerular Filtration Rate 67 mL/min (>60); Est Glom Filt Rate - Afr Amer 82 mL/min (>60); Glucose 119 mg/dL (74-106); High Density Lipoprotein 43 mg/dL; Potassium 4.1 mmol/L (3.5-5.1); Protein, Total 7.7 g/dL (6.4-8.2); Sodium Level 134 mmol/L (136-145); Triglycerides 66 mg/dL; Very Low Density Lipoprotein 13 mg/dL (5-40)
== END | disposition home or self-care (01) ==
LOC: LAB 09:27
PROVIDERS: PCP Internal Medicine; Referring Provider Internal Medicine; Visit Provider Internal Medicine
DX: I25.10 Atherosclerotic heart disease of native coronary artery without angina pectoris (principal)
CPT/HCPCS: 36415; 80053; 80061; 85025

== ENCOUNTER 2023-04-27 09:37 | Day surgery (SDC) | payer OTHER, SELFPAY ==
[2023-04-26 07:31] VITALS: BMI 25.7
--- NOTE | 2023-04-27 13:05 | CL.I_ITS ---
Patient Name: ALISON HARDY Study Date: 04/27/2023 Performing: Nicki Aldridge MD Ht: 68 inches 172.72 cm : 1960 Wt: 169.01 lbs 76.66 kg Age: 62 Gender: male BSA: 1.9 PROCEDURE(S) PERFORMED IC12-([id number])GWYN W/WO PTCA, SINGLE CORONARY ARTERY [id number])LHC/COR IC01-([id number])PTCA, SINGLE CORONARY ARTERY CLINICAL PROFILE AND CO-MORBIDITIES Indications: Staged PCI of RCA Heart Failure: None CONCLUSIONS CAD as described. Successful GWYN to pRCA. Successful PTCA of prior LAD stent RECOMMENDATIONS DESCRIPTION OF PROCEDURE The patient arrived to the procedure lab. The risks and benefits of the procedure as well as a full description of our services here and lack of surgical backup were fully explained to the patient and/or their significant other prior to the catheterization. The Timeout was completed, verifying the correct patient and procedure. The patient's procedural site was prepped and draped in the usual fashion. Local anesthetic was given subcutaneously to right radial region with Lidocaine 2%. Using a modified Seldinger technique, arterial access was obtained via the right radial artery, a 6Fr sheath was inserted.. Left Coronary Artery selective angiography was performed in multiple views using a 5 Fr. JL3.5 catheter JR4 Guide catheter was inserted and engaged into the RCA. BMW Guide wire was advanced to the RCA. 3.5X20 EMERGE Balloon catheter was inserted. Balloon catheter was advanced across lesion in the right coronary, proximal. PTCA balloon inflated at 10 atms for 16 secs. 4.5X26 RESOLUTE Drug Eluting stent was inserted. Drug Eluting stent was advanced across the lesion in the right coronary, proximal. Angiogram performed post stent deployment. 4.5X15 NC EMERGE Balloon catheter was inserted post stent. Angiogram performed post balloon dilatation. XB3.0 Guide catheter was inserted and engaged into the LCA. BMW Guide wire was advanced to the LAD. Priority One inserted Pass # 1 3.5X20 EMERGE Balloon catheter was inserted. Balloon catheter was advanced across lesion in the LAD, proximal. PTCA balloon inflated at 8 atms for 15 secs. Angiogram performed post balloon dilatation. The arterial sheath was pulled and a TR Band was applied for hemostasis-16 cc air CORONARY ANGIOGRAPHY DOMINANCE: Right Dominant LEFT MAIN: Mild luminal irregularities LEFT ANTERIOR DESCENDING ARTERY: Mild luminal irregularities. Two filling defects were noted within the stent in the pLAD that could be thrombus. CIRCUMFLEX ARTERY: Mild luminal irregularities OM 2: Proximal - 60-70 % Stenosis RIGHT CORONARY ARTERY: PROX RCA: 90 % Stenosis INTERVENTION INFORMATION LESION SITE: RCA (Proximal) Lesion Complexity: High/C, chronic total occlusion: No, lesion at bifurcation: No, thrombus present: No, lesion length: 20 mm, culprit lesion: Yes, Previously treated lesion: No Pre Stenosis: 90 % Pre intervention LUIS ARMANDO flow: 3 PROCEDURE: Drug Eluting Stent with pre dilatation. Post Stenosis: 0 % Post intervention LUIS ARMANDO flow: 3 Lesion Devices: Philip .014 190cm BMW [place] Straight Cordis 6 Fr JR4 100cm Guide Catheter Td Sci EMERGE MR 3.50x20 BALLOON Medtronic Resolute [place] RX GWYN 4.50x26 Td Sci NC EMERGE MR 4.50x15 BALLOON LESION SITE: LAD (Proximal) Lesion Complexity: High/C, chronic total occlusion: No, lesion at bifurcation: No, thrombus present: Yes, lesion length: 8 mm, culprit lesion: Yes, Previously treated lesion: Yes, Timeframe of previous treatment: <1 month, In-stent restenosis: No, Previously treated with a stent: Yes Stent Type: with GWYN, In-stent Thrombosis: Yes Pre Stenosis: 20 % Pre intervention LUIS ARMANDO flow: 3 PROCEDURE: Thrombectomy Balloon Angioplasty There appeared to be thrombus within prior stent without any compromise to blood flow. We perrfomed thrombectomy, PTCA to optimize stent and will switch frm brilinta to effient Post Stenosis: 0 % Post intervention LUIS ARMANDO flow: 3 Lesion Devices: Philip .014 190cm BMW [place] Straight Td Sci EMERGE MR 3.50x20 BALLOON Cordis 6 Fr XB3.0 100cm Guide Catheter Terumo Priority One Aspiration Catheter COMPLICATIONS No Complications PROCEDURE MEDICATIONS Versed 1 mg IV Fentanyl 50 mcg IV Oxygen: 2 L/min via nasal cannula Heparin given IA 04/27/2023 11:47:26 Heparin 3000 unit(s) IV 04/27/2023 11:47:36 Heparin 1000 unit(s) IV 04/27/2023 12:13:41 Verapamil 2.5mg, Ntg 100mcgs, 3000 units of Heparin given IA 04/27/2023 11:47:26 SUMMARY OF HEMODYNAMIC DATA Time AIR REST ECG 10:19:22 AO 91/51 (70) SA 11:49:21 Signed By Nicki Aldridge MD On 04/27/2023 13:04:32 Nicki Aldridge MD
--- NOTE | 2023-04-27 13:52 | CRPHASE1 ---
Patient Communication Former Patient:: Phase I PHII Cardiac Rehab Discussed with Patient:: Yes Guide to Cardiac Rehab Given to Patient:: Yes Cardiac Rehab Facility Choice List Given to Patient:: Yes Choice Program [facility] CR PHII:: Communication Given to CR Straddle Bug:: Alysia Aldridge Refer Phase II Cardiac Rehab:: Yes Sessions:: 36 sessions - 3 days/wk, 12 weeks Cardiac Rehabilitation Info Cardiac Rehabilitation Program Information: Cardiac Rehab The cardiac rehab team at [facility] [place] consists of highly skilled exercise physiologists, nurses, respiratory therapists and physicians working together with you. Our purpose is to help you have a full recovery and achieve the goals you set for yourself. Over the years many of our patients have returned to activities they assumed they would never do again! We can help restore your confidence and motivation to make lifestyle changes that can have a significant impact on your health and quality of life! We can help answer questions and concerns you may have about exercise, lifestyle, medications, diet, stress and anxiety which are common following a hospitalization. WE monitor ECG and vital signs during exercise and discuss your progress with you and report to your physician(s). Cardiac Rehab is proven to help reduce readmissions, improve functional capacity and lower recurrence of problems with your heart. Our Cardiac Rehab program is Certified by the [place] [employer]monary [employer] (AACVPR) and Accredited by the [employer] through our [facility]. You can contact us at . We invite you to call us with your questions or to get started in our program. If you have other questions or concerns be sure to ask your physician/provider during your follow-up visit. WE look forward to seeing you!
--- NOTE | 2023-04-27 13:53 | CRPH1.INSTRU ---
General Education CAD and cardiac anatomy and function:: Patient communicates acknowledgment, Needs reinforcement Explanation of diagnoses and procedures:: Patient communicates acknowledgment, Needs reinforcement Sign/Symptoms of UT:: Patient communicates acknowledgment, Needs reinforcement Antiplatelet therapy: Patient communicates acknowledgment, Needs reinforcement Proper use of NTG-SL: Patient communicates acknowledgment, Needs reinforcement Emergency procedures and activation of EMS: Patient communicates acknowledgment, Needs reinforcement Compliance of all prescribed medications: Patient communicates acknowledgment, Needs reinforcement Smoking Patient Nicotine/Smoking Risk Factors Are:: Non-smoker Dyslipidemia Patient Dyslipidemia Risk Factors Are:: Total Cholesterol, Triglycerides, HDL, LDL Recommendations Include:: Lipid profile not available Dyslipidemia Response Code:: Patient communicates acknowledgment, Needs reinforcement Overweight/Obesity Patient Overweight/Obesity Risk Factors Are:: Overweight = 26-29 Recommendations Include:: Weight loss of 5-10%, Reduced calorie diet, Exercise 5-7 times/week Overweight/Obesity:: Patient communicates acknowledgment, Needs reinforcement Hypertension Patient Hypertension Risk Factors Are:: No documented hx of HTN Recommendations Include:: Maintain BP <130/85 Hypertension:: Patient communicates acknowledgment, Needs reinforcement Heart Disease Patient Heart Disease Risk Factors Are:: Previous cardiac event Recommendations Include:: Educated family members of their risk Heart Disease Response Code:: Patient communicates acknowledgment, Needs reinforcement Diabetes Patient Diabetes Risk Factors Are:: No documented hx of diabetes Sedentary Patient Sedentary Risk Factors Are:: Lack of regular exercise Recommendations Include:: Aerobic exercise 5-7 times/week for 20-30 minutes continuously, Benefits of regular exercise, Discussed home walking program, Monitored Outpatient Cardiac Rehab Sedentary Response Code:: Patient communicates acknowledgment, Needs reinforcement
== END 2023-04-27 15:41 | disposition home or self-care (01) ==
PROVIDERS: PCP Internal Medicine; Referring Provider Specialist; Visit Provider Specialist
DX: T82.867A Thrombosis due to cardiac prosthetic devices, implants and grafts, initial encounter (principal); I50.20 Unspecified systolic (congestive) heart failure; I25.10 Atherosclerotic heart disease of native coronary artery without angina pectoris; I25.2 Old myocardial infarction; Z79.82 Long term (current) use of aspirin; Z79.899 Other long term (current) drug therapy; Z95.5 Presence of coronary angioplasty implant and graft; X58.XXXA Exposure to other specified factors, initial encounter
CPT/HCPCS: 92920; 92928; 93005; 93454; 99152; 99153; C1757; C1874; J7040; Q9967; C1725; C1769; C1887; C1894; C9600

== ENCOUNTER → 2023-05-18 | Outpatient (CLI) | payer OTHER, SELFPAY ==
--- NOTE | 2023-05-18 07:59 | CR.HP_ITS ---
CR - History & Physical General Arrival date:: 05/18/23 Arrival time:: 07:59 Date of Referral:: 04/05/23 Date of CR Evaluation:: 05/18/23 Referring Physician: Dr. Shun Roman Primary Diagnosis: PCI with stent History of Present Cardiac Event Onset Date PTCA or coronary stenting:: Yes Vessel: 04/05/23 LAD, RCA Medications Ambulatory Orders Medication Instructions Recorded aspirin 81 mg tablet,delayed 81 mg PO DAILY #90 tabs 04/18/23 release furosemide 40 mg tablet (Lasix) 40 mg PO DAILY #30 tabs 04/18/23 potassium chloride 20 mEq 20 meq PO DAILY #30 tabs 04/18/23 tablet,extended release prasugrel 10 mg tablet (Effient) 10 mg PO DAILY #30 tabs 04/27/23 atorvastatin 40 mg tablet 40 mg PO QHS 30 days #90 tabs 05/02/23 metoprolol succinate 25 mg 12.5 mg (1/2 x 25 mg) PO DAILY #45 05/02/23 tablet,extended release 24 hr tabs losartan 25 mg tablet 25 mg PO DAILY #30 tabs 05/09/23 Allergies Allergies No Known Allergies Allergy (Verified 05/09/23 13:28) Sleep Disorder Evaluation Hx of Sleep Apnea: No Do you snore loudly (louder than talking or can be heard through closed doors)?: No Do you often feel tired/ fatigued/ sleepy during daytime?: No Has anyone observed you stop breathing during sleep?: No History of Hypertension (for STOP score): No STOP Results: Negative Advanced Directives Advanced Directives Power of Nursing Home Physician: No Living Will: No Advance Directives Information Provided: No Advance Directives on File: No DNR Order?:: No Past Medical History Covid-19 Screening Physicial Symptoms Other Clinical Concerns Exposure Risk Pertinent Comorbidities Has a serious heart condition:: Yes Past Medical Illness Medical History Acute ST elevation myocardial infarction (STEMI) Atherosclerosis of coronary artery of [place] heart without angina pectoris Cardiac arrest Cardiogenic shock Coronary artery disease Past Surgical History Surgical History History of coronary artery stent placement (04/27/23) History of tonsillectomy Family History Summary Family History (Reviewed 05/09/23 @ 13:53 by Rafy Naylor [employer], [employer]) Mother Cardiomegaly Brother Heart disease Diabetes Father Diabetes Sister Diabetes Social History Smoking History Hx Tobacco Use: No Alcohol Use Alcohol Usage: No Substance Abuse Hx Substance Use: No Occupation Occupation (List type of work in comments):: Employed Hours worked per day:: 9 Returned to work on:: 04/14/23 Hobbies, Recreation, Social Activities Hobbies: Reading and Walking Recreational Activities: I am able to engage in all my recreational activities Social Environment Status Marital Status: Current Living Arrangements Living Environment:: Spouse Children How many children do you have?: 3 Do any of your children live nearby?: Yes Safety Do you feel safe in your surroundings?: Yes Assistance Do you need any assistance at home?: no Review of Systems Review of Systems Hints Review of Present Symptoms: Reports Fatigue, Appetite - Special Diet and Sleep - Normal; Denies Shortness of Breath at Rest, Shortness of Breath with Exertion, PVD, Operative Discomfort, Angina, Wound Healing, Dizziness/Lightheadedness, Heart Arrhythmia/Irregularities, Appetite - Normal or Sexual Changes Pain Is Patient Pain Free?: Yes Risk Factor Assessment Vital Signs Blood Pressure: 121/75 Pulse Pulse Rate: 83 Stress Stress: Work-related Obesity Height: 5 ft 8 in Weight:: 169 lb Weight in Pounds: 169.0 lbs Body Mass Index (BMI): 25.7 Physical Inactivity Physical Inactivity: Reg Exercise 30 min/day Risk Stratification Risk Guidelines: Lowest Risk: Risk Factor for Smoking and Moderate Risk: Risk Factor for Dyslipidemia, Risk Factor for Diabetes, Risk Factor for Obesity, Risk Factor for Hypertension, Risk Factor for Sedentary Lifestyle and Risk Factor for Depression For Smoking Smoking Risk Guidelines For Dyslipidemia Dyslipidemia Risk Guidelines For Diabetes Mellitus Diabetes Risk Guidelines For Obesity/Overweight Obesity/Overweight Risk Guidelines For Hypertension Hypertension Risk Guidelines For Sedentary Lifestyle Sedentary Lifestyle Risk Guidelines For Depression Depression Risk Guidelines Family History Family History Mother Cardiomegaly Brother Heart disease Diabetes Father Diabetes Sister Diabetes Motivation Motivation to Participate On a scale of 1 to 10, how prepared are you to commit to attending program?: 7 What do you see as barriers to successfully being able to complete the program?: no What do you see as the benefits of succesfully completing the program? In other words, what do you hope to get out of participating in the program?: more energy, stamina, strength Are there issues you are dealing with that will interfere with completing the program?: no Do you have a spouse or signficant other, family or friends who will help support you to complete the program?: yes
[2023-05-18 08:10] VITALS: BP 121/75; PULSE 83
--- NOTE | 2023-05-18 08:11 | CR.ITP_ITS ---
Diagnosis General Information Admitting Diagnosis: PCI with stent Personal Learning Style:: Audio/Visual, Demonstration, Group, Individual Preference and Written Barriers to Learning: No Barriers Stage of change r/t lifestyle modifications:: Contemplation Gave educational material for:: Treating Heart Disease, How The Heart Works, What it means to have Heart Disease, How Coronary Artery Disease is Diagnosed, Heart Procedures, What Heart Medications Do, Risk Factors & Modifications, Living an Active Life, Nutrition, Emotions & Heart Disease, Stress Management & Relaxation and Sleep Disorders & Heart Disease Education/Goals Cardiac Rehabilitation Goals Personal Goals: Initial Assessment: Improve energy level and Improve muscle strength and endurance Scale for measuring improvement of personal goals Diagnosis & Disease Process Outcomes/Goals: Pt IDs own risk factors & lifestyle modifications by Session 10, Verbalizes symptoms of angina & response by session 3., Pt independently manages and Other Additional Outcomes/Goals: Plan/Interventions: Assist Pt to ID & engage in lifestyle modification to reduce CVD risk, Instruct on individual risk factors, Review symptoms of angina & emergency actions, Review secondary diagnosis & identify educational needs. and Other see comment 30 day Reassessments:: Not Met 30 day Reassessments:: Not Met 30 day Reassessments:: Not Met 30 day Reassessments:: Not Met Final Reassessments:: Not Met Safety Referral to Physical Therapy: No Referral to [facility] Case Management: No Fall Risk Assessed:: Yes Assistive Devices:: None Exercise - Initial Assessment Visit Date of Eval: 05/18/23 (initial eval ) Mets: Pre-: >3 METS for 30 minutes by discharge, >5 METS for 30 minutes by discharge, >7 METS for 30 minutes by discharge and Unable to meet goal due to: (see comment below) Physician Prescribed Exercise Modalities: Treadmill, Rower, Airdyne, NuStep, SciFit and Lateral Equality Frequency: 3x/week for 12 weeks [36 sessions] Intensity: 60-80% of age predicted maximum heart rate reserve Duration: 30 - 45 minutes Current METSs:: 3 Target Heart Rate:: 96-112 Resting Blood Pressure: 121/75 EKG Type: NSR Outcomes & Goals Goals:: Verbalizes understanding of THR, RPE & goal METS by session 6, Documents in home exercise log/reports 30 min aerobic 5 day/wk by DC, Demonstrates accurate pulse taking by DC and Other additional outcome/goals: see below Intervention & Plan Exercise Program Goals: Instruct on personal THR & RPE, Instruct on MET level & personal MET goal, Show patient to take own pulse /validate performance until accurate, Instruct on home exercise and Other additional plan/int Physical Activity Home Exercise Physical Activity - Home Exercise: Safe Exercise, Warm-up, Self-monitoring, Cool-Down, Home Exercise > 30 min Daily and Sitting Time <3 hours/daily Outcomes & Goals Outcomes/Goals: Demonstrates correct Warm-up/exercise Cool-Down (S3) if = 2.5 METs, Verbalizes symptoms of exercise intolerance by Session 3 (S3), Demonstrate safe equipment use (S3) & follows exercise prescrition (6) and Other: See below Intervention & Plan Plan/Intervention: Instruct warm-up & cool-down if exercising at > 2 METs, Instruct on symptoms of exercise intolerance & actions to take, Instruct & monitor on saf, Assess intial functional capacity & safety risk and Other See below Nutrition - Initial Assessment Program Goals Nutrition Program Goals Patient has diagnosis of Hyperlipidemia (ICD E78)?: No Visit Date of Assessment:: 05/18/23 (initial eval ) Cholesterol/Lipids (Other Core Measures) Determine presence & major risk factors that modify LDL goal: Hypertension or hypertensive medication, Low HDL cholesterol <40 mg/dL*, Family history of premature CHD in Male < 55 years: female <65 yearsFa and Age men > 45 years; women >/= 55 years Outcomes/Goals: Pt IDs own risk factors & lifestyle modifications by Session 10, Verbalizes symptoms of angina & response by session 3., Pt independently manages and Other Additional Outcomes/Goals: Intervention/Plan: Advocate for lipid panel cholesterol medication if applicable, Instruct on personal lipid levels & lipid goals/NCEP guidelines, Instruct on cholesterol and Other additional plan/int Referral to dietitian:: No Diabetes (Other Core Measures) Diabetes Type: Not Applicable Weight Mgt (Other Care) Height: 5 ft 8 in Weight:: 169 lb BMI: 25.7 Diagnosis Overweight/Obesity BMI> 30% ICD-10 E66: No Diagnosis High BMI/Morbid Obesity BMI> 35% ICD-10 Z68: No Outcomes/Goals: Pt sets, maintains & shows weight loss goal & trend during rehab and Other additional outcomes/goals Intervention/Plan: Instruct on ideal BMI & set weight loss goal w/patient, Assist pt to ID & incorporate diet changes for weight loss by S9, Refer to Structured Weight Loss program as appropriate, Encourage goal of using 250- 300dcal per session for weight loss and Other additional plan/interventions Healthy Eating Habits Will attend diet classes:: Yes Outcomes/Goals:: Consume diet rich in vegs,fruits,whole grain/high fiber,fish,lean meat, Limit sat/trans fats,cholesterol & added salts & sugars and Other additional outcome/goals: Intervention/Plan:: Assess current eating habits and Other Additional plan/interventions Education Gave educational materials for:: Signs & symptoms of hypoglycemia, Signs & symptoms of hyperglycemia, Relate diabetes to coronary artery disease and Healthy eating Core - Initial Assessment Visit Date of Eval: 05/18/23 (initial eval ) Medication Compliance Preventative Medication(s):: Aspirin, Ticagrelor/P2Y12 inhibitor, Statin/lipid and Beta gene H/O mental health issues: depression, anxiety, or addiction?: No Doesn?t believe in the benefits of treatment?: No Believes medications are unnecessary or harmful?: No Has a concern about medication side effects?: No Expresses concern over the cost of medications?: No Outcomes/Goals: Verbalizes medications,desired effect & common side effects @ DC, Pt self-reports following medication regimen, Keeps card in wallet w/medications listed by DC and Other additional outcome/goals: Interventions/plans: Instruct on medication effects & side effects, Review medication list w/patient every two weeks, Instruct importance of taking meds as ordered & assist problem solving and Other additional Tobacco Use Tobacco Use: Non-smoker Hypertension Resting Blood Pressure:: 121/75 [place] [employer] Hypertension Guidelines Outcomes/Goals: Able to verbalize/achieve optimal blood pressure <130/80, Incorporates diet changes & exercise for blood pressure control by DC and Other additional outcomes/goals Interventions/plan: Instruct on optimal blood pressure, hypertension & medications, Instruct on effects of sodium, alcohol, stress, exercise &hypertension and Other additional plan/interventions Tobacco Cessation Referral Smoking Cessation Referral:: No Individual Education/Counseling:: No Education Schedule Given:: Yes Psychosocial - Initial Assess VIsit Date of Eval: 05/18/23 (initial eval ) History of previous Mental disease:: No Target Goals Target Goals Patient Health Questionnaire PHQ-9 Screening Initial Assessment: 1. Little interest or pleasure in doing things: Not at all 2. Feeling down, depressed, or hopeless: Not at all 3. Trouble falling or staying asleep, or sleeping too much: Not at all 4. Feeling tired or having little energy: Not at all 5. Poor appetite or overeating: Not at all 6. Feeling bad about yourself -- or that you are a failure or have let yourself or your family down: Not at all 7. Trouble concentrating on things, such as reading the newspaper or watching television: Not at all 8. Moving or speaking so slowly that other people could have noticed. Or the opposite - being so fidgety or restless that you have been moving around a lot more than usual: Not at all 9. Thoughts that you would be better off , or of hurting yourself in some way: Not at all How difficult have these problems made it for you to do your work, take care of things at home, or get along with other people?: Not difficult at all Total Score: 0 CONCEPCIÓN-Q SV Test Statements CAD is a disease of the arteries in the heart: False Examples of risk factors for heart disease: True Angina is chest pain or discomfort: True The benefits of resistance training include: True Eating more meat and dairy products: False Anti-platelet medications such as aspirin are important: True The only effective way to manage stress: False An exercise warm-up slowly increases heart rate: I Don't Know Prepared, processed foods usually have high sodium: True Depression is common after a heart attack: I Don't Know The statin medications lower cholesterol: I Don't Know To control blood pressure, lower the amount of sodium: True If someone gets chest discomfort during walking: False Transfats are partially hydrogenated vegetable oils: I Don't Know Sleep apnea that is not treated increases the risk: True To control cholesterol, one should become a vegetarian: False Someone knows if he/she is exercising at the right level: I Don't Know Diabetes cannot be prevented with exercise & health eating: False Stress is a large risk for heart attack: True A diet that can help lower blood pressure is rich in: True Total Score Total Correct Responses: 14 Self-Efficacy 6-Item Scale Initial Assessment: We would like to know how confident you are in doing certain activities. Please select your confidence level for: Fatigue Select Number: 7 Physical Discomfort or Pain Select Number: 8 Emotional Distress Select Number: 7 Other Symptoms or Health Problems Select Number: 9 Different Tasks and Activities Select Number: 8 Medication Select Number: 9 Total Score:: 8 Nutrition Survey Nutrition Survey Instructions Scoring Instructions Nutrition Survey Initial: Have you lost >10 lbs over the past 2 months without trying?: No Are you following a special diet at home for diabetes, low fat, or low salt?: Yes Are you interested in meeting with a dietitian for help understanding your diet?: No Do you eat less than 3 meals a day?: No Do you eat fatty meats (alicia, sausage, ribs, etc), fried foods, desserts, large amounts of salad dressings, margarine, butter, or cheese most days?: No Do you have food allergies? [Enter types in comment field]: No Do you eat in restaurants more than 3 times a week?: Yes Do you season food with salt, seasoning salt, or garlic salt?: Yes Do you used canned, boxed, frozen meals, or soups, seasoning packets?: Yes Total Score:: 4 Exercise - Final/Discharge Physician Prescribed Exercise Modalities: Treadmill, Rower, Airdyne, NuStep, SciFit and Lateral Plant Propagator Frequency: 3x/week for 12 weeks [36 sessions] Intensity: 60-80% of age predicted maximum heart rate reserve Current METSs:: 3 Target Heart Rate:: 96-112 Nutrition - 30-Day Assessment Weight Mgt (Other Care) Height: 5 ft 8 in Weight:: 169 lb BMI: 25.7 Nutrition - 60-Day Assessment Weight Mgt (Other Care) Height: 5 ft 8 in Weight:: 169 lb BMI: 25.7 Core - 30-Day Assessment Visit Date of Eval: 05/18/23 (initial eval ) Core - Final Assessment Hypertension Resting Blood Pressure:: 121/75 [place] [employer] Hypertension Guidelines Core - 60-Day Assessment Hypertension Resting Blood Pressure:: 121/75 [place] [employer] Hypertension Guidelines Psychosocial - 30-Day Assess Target Goals Target Goals Psychosocial - 60-Day Assess Target Goals Target Goals Psychosocial - 90-Day Assess Target Goals Target Goals Psychosocial - Final Assessmen Target Goals Target Goals Nutrition - 90-Day Assessment Weight Mgt (Other Care) Height: 5 ft 8 in Weight:: 169 lb BMI: 25.7 Nutrition - Final Assessment Program Goals Patient has diagnosis of Hyperlipidemia (ICD E78)?: No Weight Mgt (Other Care) Height: 5 ft 8 in Weight:: 169 lb BMI: 25.7
[2023-05-18 08:17] VITALS: BP 121/75
[2023-05-18 08:32] VITALS: BMI 25.7
[2023-05-18 09:02] VITALS: BMI 25.7
== END | disposition home or self-care (01) ==
LOC: CR 07:45
PROVIDERS: PCP Internal Medicine; Referring Provider Internal Medicine Cardiovascular Disease; Visit Provider Internal Medicine Cardiovascular Disease
DX: Z00.00 Encounter for general adult medical examination without abnormal findings (principal)

== ENCOUNTER 2023-06-13 08:00 | Outpatient (RCR) | payer OTHER, SELFPAY ==
[2023-05-18 09:02] VITALS: BMI 25.7
== END 2023-06-13 23:59 ==
LOC: CR 08:00
PROVIDERS: PCP Internal Medicine; Referring Provider Internal Medicine Cardiovascular Disease; Visit Provider Internal Medicine Cardiovascular Disease
DX: Z95.5 Presence of coronary angioplasty implant and graft (principal); I46.9 Cardiac arrest, cause unspecified; I21.3 ST elevation (STEMI) myocardial infarction of unspecified site; R57.0 Cardiogenic shock
CPT/HCPCS: 93798

== ENCOUNTER → 2023-07-11 | Outpatient (CLI) | payer OTHER, SELFPAY ==
[2023-05-18 09:02] VITALS: BMI 25.7
[2023-06-17 07:39] VITALS: BMI 21.2
--- NOTE | 2023-07-11 10:50 | ECHOL_ITS ---
Reason For Study: CHF Procedure This was a limited 2D transthoracic echocardiogram. The study was technically difficult. Contrast injection was performed. Exam performed in department. Left Ventricle Normal LV size. The estimated ejection fraction is 38 %. There are regional wall motion abnormalities as specified. Mid-Anterior : Severely Hypokinetic. [place] : Akinetic. Mid-anteroseptal : Hypokinetic. Right Ventricle Normal RV size. Normal systolic function. [place] Normal left atrium. Normal right atrium. Mitral Valve Normal mitral valve. Tricuspid Valve Normal tricuspid valve. Aortic Valve Trisinus/trileaflet aortic valve. Pulmonic Valve Normal pulmonic valve. Great Vessels Normal aortic root. The pulmonary artery is normal size. Normal inferior vena cava. Pericardium/Pleural No pericardial effusion. Medication 22 gauge I.V. with prn adaptor inserted into right arm. Diluted definity 1ml given slow IV push to enhance endocardial definition. MMode/2D Measurements & Calculations LVIDd: 5.3 cm IVSd: 1.0 cm LAV(MOD-sp4): 64.8 ml LVIDs: 4.1 cm LVPWd: 0.91 cm FS: 21.9 % LVAd ap4: 39.3 cm2 SV(MOD-sp4): 51.8 ml SV(sp4-el): 54.0 ml LVLd ap4: 9.2 cm EDV(MOD-sp4): 136.7 ml EDV(sp4-el): 142.8 ml LVAs ap4: 29.7 cm2 LVLs ap4: 8.4 cm ESV(MOD-sp4): 84.9 ml ESV(sp4-el): 88.8 ml EF(MOD-sp4): 37.9 % EF(sp4-el): 37.8 % LA A4 area: 21.3 cm2 ECHO/Echo Limited w/Contrast Interpretation Summary Normal LV size. The estimated ejection fraction is 38 %. There are regional wall motion abnormalities as specified. Compared to previous study, the left ventricular systolic function has improved .. Ordering Physician: Rafy Naylor Referring Physician: Rafy Naylor Performed By: Latoya Garcia RCS
== END | disposition home or self-care (01) ==
LOC: CVS 10:49
PROVIDERS: PCP Internal Medicine; Referring Provider Nurse Practitioner Family; Visit Provider Nurse Practitioner Family
DX: I50.20 Unspecified systolic (congestive) heart failure (principal); I25.10 Atherosclerotic heart disease of native coronary artery without angina pectoris
CPT/HCPCS: 93308; Q9957; A4216; C8924

== ENCOUNTER 2023-07-13 08:00 | Outpatient (RCR) | payer OTHER, SELFPAY ==
[2023-05-18 09:02] VITALS: BMI 25.7
--- NOTE | 2023-06-17 07:32 | CR.ITP_ITS ---
Exercise - Initial Assessment Visit Session #:: 12 Nutrition - Initial Assessment Weight Mgt (Other Care) Height: 5 ft 8 in Weight:: 139 lb 8 oz BMI: 21.2 Psychosocial - Initial Assess Target Goals Target Goals Referral to Behavioral Health PS - Interventions: Yes: Attend Stress Management Classes and No: Referral to Behavioral Health if PHQ-9 score >9:, No: Referral to [facility] and No: Referral to Physician if PHQ-9 if score is 5-9: Patient Health Questionnaire PHQ-9 Screening 30-Day Re-eval Assessment: 1. Little interest or pleasure in doing things: Not at all 2. Feeling down, depressed, or hopeless: Not at all 3. Trouble falling or staying asleep, or sleeping too much: Not at all 4. Feeling tired or having little energy: Not at all 5. Poor appetite or overeating: Not at all 6. Feeling bad about yourself -- or that you are a failure or have let yourself or your family down: Not at all 7. Trouble concentrating on things, such as reading the newspaper or watching television: Not at all 8. Moving or speaking so slowly that other people could have noticed. Or the opposite - being so fidgety or restless that you have been moving around a lot more than usual: Not at all 9. Thoughts that you would be better off , or of hurting yourself in some way: Not at all How difficult have these problems made it for you to do your work, take care of things at home, or get along with other people?: Not difficult at all Total Score: 0 Self-Efficacy 6-Item Scale 30-Day Re-eval Assessment: We would like to know how confident you are in doing certain activities. Please select your confidence level for: Fatigue Select Number: 8 Physical Discomfort or Pain Select Number: 9 Emotional Distress Select Number: 8 Other Symptoms or Health Problems Select Number: 10 Different Tasks and Activities Select Number: 9 Medication Select Number: 10 Total Score:: 9 Nutrition Survey Nutrition Survey Instructions Scoring Instructions Exercise - 30-day Assessment Visit Date of Eval: 06/17/23 Session #:: 12 Physician Prescribed Exercise Modalities: Treadmill, Rower and Airdyne Frequency: 3x/week for 12 weeks [36 sessions] Intensity: 60-80% of age predicted maximum heart rate reserve Duration: 30 - 45 minutes Current METSs:: 5.5 Target Heart Rate:: 120-136 Current RPE:: 12 Maximum Excercise HR:: 141 Resting Blood Pressure: 120/72 Maximum Exercise Blood Pressure: 168/100 EKG Type: NSR to sinus tach with frequent PVCs, quadrigeminy Current Physical Activity or Exercising minutes: 40:44 Outcomes & Goals Goals:: Verbalizes understanding of THR, RPE & goal METS by session 6, Documents in home exercise log/reports 30 min aerobic 5 day/wk by DC and Demonstrates accurate pulse taking by DC Intervention & Plan Exercise Program Goals: Instruct on personal THR & RPE, Instruct on MET level & personal MET goal, Show patient to take own pulse /validate performance until accurate and Instruct on home exercise 30-day Reassessments 30 day Reassessments:: Met Physical Activity Home Exercise Physical Activity - Home Exercise: Safe Exercise, Warm-up, Self-monitoring, Cool-Down, Home Exercise > 30 min Daily and Sitting Time <3 hours/daily Outcomes & Goals Outcomes/Goals: Demonstrates correct Warm-up/exercise Cool-Down (S3) if = 2.5 METs, Verbalizes symptoms of exercise intolerance by Session 3 (S3) and Demonstrate safe equipment use (S3) & follows exercise prescrition (6) Intervention & Plan Plan/Intervention: Instruct warm-up & cool-down if exercising at > 2 METs, Instruct on symptoms of exercise intolerance & actions to take, Instruct & monitor on saf and Assess intial functional capacity & safety risk 30-day Reassessments 30 day Reassessments:: Met Nutrition - 30-Day Assessment Visit Date of Eval: 06/17/23 Session #:: 12 Cholesterol/Lipids (Other Core Measures) Determine presence & major risk factors that modify LDL goal: Hypertension or hypertensive medication and Age men > 45 years; women >/= 55 years Outcomes/Goals: Pt IDs own risk factors & lifestyle modifications by Session 10, Verbalizes symptoms of angina & response by session 3. and Pt independently manages Intervention/Plan: Instruct on personal lipid levels & lipid goals/NCEP guidelines and Instruct on cholesterol Referral to dietitian:: Yes 30-day Reassessments:: Progressing Diabetes (Other Core Measures) Diabetes Type: Not Applicable Weight Mgt (Other Care) Not Applicable: Yes Height: 5 ft 8 in Weight:: 139 lb 8 oz BMI: 21.2 Diagnosis Overweight/Obesity BMI> 30% ICD-10 E66: No Diagnosis High BMI/Morbid Obesity BMI> 35% ICD-10 Z68: No Outcomes/Goals: Pt sets, maintains & shows weight loss goal & trend during rehab Intervention/Plan: Instruct on ideal BMI & set weight loss goal w/patient 30 day Reassessments:: Met Healthy Eating Habits Will attend diet classes:: Yes Outcomes/Goals:: Consume diet rich in vegs,fruits,whole grain/high fiber,fish,lean meat and Limit sat/trans fats,cholesterol & added salts & sugars Intervention/Plan:: Assess current eating habits 30-day Reassessments:: Progressing Education Gave educational materials for:: Healthy eating Nutrition - 60-Day Assessment Weight Mgt (Other Care) Height: 5 ft 8 in Weight:: 139 lb 8 oz BMI: 21.2 Core - 30-Day Assessment Visit Date of Eval: 06/17/23 Session #:: 12 Medication Compliance Preventative Medication(s):: Aspirin, Ticagrelor/P2Y12 inhibitor, Statin/lipid and Beta gene H/O mental health issues: depression, anxiety, or addiction?: No Doesn?t believe in the benefits of treatment?: No Believes medications are unnecessary or harmful?: No Has a concern about medication side effects?: No Expresses concern over the cost of medications?: No Outcomes/Goals: Verbalizes medications,desired effect & common side effects @ DC, Pt self-reports following medication regimen and Keeps card in wallet w/medications listed by DC Interventions/plans: Instruct on medication effects & side effects, Review medication list w/patient every two weeks and Instruct importance of taking meds as ordered & assist problem solving 30-day Reassessments:: Met Tobacco Use Tobacco Use: Non-smoker Hypertension Hypertension Diagnosis:: Hypertension ICD-10 I10 Resting Blood Pressure:: 120/72 [place] [employer] Hypertension Guidelines Peak Exercise Blood Pressure:: 168/100 Outcomes/Goals: Able to verbalize/achieve optimal blood pressure <130/80 and Inc orporates diet changes & exercise for blood pressure control by DC Interventions/plan: Instruct on optimal blood pressure, hypertension & medications and Instruct on effects of sodium, alcohol, stress, exercise &hypertension 30 day Reassessments:: Met Tobacco Cessation Referral Smoking Cessation Referral:: No Individual Education/Counseling:: No Education Schedule Given:: Yes Psychosocial - 30-Day Assess VIsit Date of Eval: 06/17/23 Session #:: 12 Not Applicable: Yes History of previous Mental disease:: No Target Goals Target Goals Psychosocial Test Tool Used:: PHQ-9 Questionnaire phq-9 Severity Referral to Behavioral Health PS - Interventions: Yes: Attend Stress Management Classes and No: Referral to Behavioral Health if PHQ-9 score >9:, No: Referral to [facility] and No: Referral to Physician if PHQ-9 if score is 5-9: Outcomes/Goals: See list Psychosocial Outcomes/Goals:: ID's personal stressors & 2 strategies to manage stress by discharge Intervention/Plan: See List Interventions/Plan:: Assess stressors,coping strategies & signs of derpression on admission, Instruct/assist pt to develop coping & personal stress Mgt strategies, Instruct patient to recognize signs & symptoms of depression and Instruct patient to recog 30-day Reassessments: 30 day Reassessments:: Progressing Psychosocial - 60-Day Assess Target Goals Target Goals Referral to Behavioral Health PS - Interventions: Yes: Attend Stress Management Classes and No: Referral to Behavioral Health if PHQ-9 score >9:, No: Referral to [facility] and No: Referral to Physician if PHQ-9 if score is 5-9: Outcomes/Goals: See list Psychosocial Outcomes/Goals:: ID's personal stressors & 2 strategies to manage stress by discharge Psychosocial - 90-Day Assess Target Goals Target Goals Referral to Behavioral Health PS - Interventions: Yes: Attend Stress Management Classes and No: Referral to Behavioral Health if PHQ-9 score >9:, No: Referral to [facility] and No: Referral to Physician if PHQ-9 if score is 5-9: Psychosocial - Final Assessmen Target Goals Target Goals Referral to Behavioral Health PS - Interventions: Yes: Attend Stress Management Classes and No: Referral to Behavioral Health if PHQ-9 score >9:, No: Referral to [facility] and No: Referral to Physician if PHQ-9 if score is 5-9: Nutrition - 90-Day Assessment Weight Mgt (Other Care) Height: 5 ft 8 in Weight:: 139 lb 8 oz BMI: 21.2 Nutrition - Final Assessment Weight Mgt (Other Care) Height: 5 ft 8 in Weight:: 139 lb 8 oz BMI: 21.2
[2023-06-17 07:39] VITALS: BP 120/72; BMI 21.2
== END 2023-07-14 23:59 ==
LOC: CR 08:00
PROVIDERS: PCP Internal Medicine; Referring Provider Internal Medicine Cardiovascular Disease; Visit Provider Internal Medicine Cardiovascular Disease
DX: I21.3 ST elevation (STEMI) myocardial infarction of unspecified site (principal); I46.9 Cardiac arrest, cause unspecified; Z95.5 Presence of coronary angioplasty implant and graft; R57.0 Cardiogenic shock
CPT/HCPCS: 93798

== ENCOUNTER 2023-08-12 08:00 | Outpatient (RCR) | payer OTHER, SELFPAY ==
[2023-06-17 07:39] VITALS: BMI 21.2
[2023-07-15 00:19] VITALS: BP 120/72
--- NOTE | 2023-07-20 08:20 | PCM.CR.ITP ---
Nutrition - Initial Assessment Weight Mgt (Other Care) Height: 5 ft 8 in Weight:: 162 lb BMI: 24.6 Psychosocial - Initial Assess Target Goals Target Goals Patient Health Questionnaire PHQ-9 Screening 60-Day Re-eval Assessment: 1. Little interest or pleasure in doing things: Not at all 2. Feeling down, depressed, or hopeless: Not at all 3. Trouble falling or staying asleep, or sleeping too much: Not at all 4. Feeling tired or having little energy: Not at all 5. Poor appetite or overeating: Not at all 6. Feeling bad about yourself -- or that you are a failure or have let yourself or your family down: Not at all 7. Trouble concentrating on things, such as reading the newspaper or watching television: Not at all 8. Moving or speaking so slowly that other people could have noticed. Or the opposite - being so fidgety or restless that you have been moving around a lot more than usual: Not at all 9. Thoughts that you would be better off , or of hurting yourself in some way: Not at all How difficult have these problems made it for you to do your work, take care of things at home, or get along with other people?: Not difficult at all Total Score: 0 Self-Efficacy 6-Item Scale 60-Day Re-eval Assessment: We would like to know how confident you are in doing certain activities. Please select your confidence level for: Fatigue Select Number: 8 Physical Discomfort or Pain Select Number: 9 Emotional Distress Select Number: 8 Other Symptoms or Health Problems Select Number: 10 Different Tasks and Activities Select Number: 9 Medication Select Number: 10 Total Score:: 9 Nutrition Survey Nutrition Survey Instructions Scoring Instructions Exercise - 60-day Assessment Visit Date of Eval: 07/20/23 Session #:: 25 Physician Prescribed Exercise Modalities: Treadmill, Rower and Airdyne Frequency: 3x/week for 12 weeks [36 sessions] Intensity: 60-80% of age predicted maximum heart rate reserve Duration: 30 - 45 minutes Current METSs:: 6.5 Target Heart Rate:: 120-136 Current RPE:: 12-13.5 Maximum Excercise HR:: 149 Resting Blood Pressure: 124/72 Maximum Exercise Blood Pressure: 164/76 EKG Type: NSR to ST with rare PAC Outcomes & Goals Goals:: Verbalizes understanding of THR, RPE & goal METS by session 6, Documents in home exercise log/reports 30 min aerobic 5 day/wk by DC, Demonstrates accurate pulse taking by DC and Other additional outcome/goals: see below Intervention & Plan Exercise Program Goals: Instruct on personal THR & RPE, Instruct on MET level & personal MET goal, Show patient to take own pulse /validate performance until accurate, Instruct on home exercise and Other additional plan/int 30-day Reassessments 30 day Reassessments:: Progressing Reassessment Notes & Comments:: METs explained Physical Activity Home Exercise Physical Activity - Home Exercise: Safe Exercise, Warm-up, Self-monitoring, Cool-Down, Home Exercise > 30 min Daily and Sitting Time <3 hours/daily Outcomes & Goals Outcomes/Goals: Demonstrates correct Warm-up/exercise Cool-Down (S3) if = 2.5 METs, Verbalizes symptoms of exercise intolerance by Session 3 (S3), Demonstrate safe equipment use (S3) & follows exercise prescrition (6) and Other: See below Intervention & Plan Plan/Intervention: Instruct warm-up & cool-down if exercising at > 2 METs, Instruct on symptoms of exercise intolerance & actions to take, Instruct & monitor on saf, Assess intial functional capacity & safety risk and Other See below 30-day Reassessments 30 day Reassessments:: Progressing Reassessment Notes & Comments:: cool down encouraged Nutrition - 30-Day Assessment Weight Mgt (Other Care) Height: 5 ft 8 in Weight:: 162 lb BMI: 24.6 Nutrition - 60-Day Assessment Visit Date of Eval: 07/20/23 Session #:: 25 Cholesterol/Lipids (Other Core Measures) Determine presence & major risk factors that modify LDL goal: Hypertension or hypertensive medication, Low HDL cholesterol <40 mg/dL*, Family history of premature CHD in Male < 55 years: female <65 yearsFa and Age men > 45 years; women >/= 55 years Outcomes/Goals: Pt IDs own risk factors & lifestyle modifications by Session 10, Verbalizes symptoms of angina & response by session 3., Pt independently manages and Other Additional Outcomes/Goals: Intervention/Plan: Advocate for lipid panel cholesterol medication if applicable, Instruct on personal lipid levels & lipid goals/NCEP guidelines, Instruct on cholesterol and Other additional plan/int Referral to dietitian:: Yes 30-day Reassessments:: Progressing Diabetes (Other Core Measures) Diabetes Type: Not Applicable Weight Mgt (Other Care) Height: 5 ft 8 in Weight:: 162 lb BMI: 24.6 Diagnosis Overweight/Obesity BMI> 30% ICD-10 E66: No Diagnosis High BMI/Morbid Obesity BMI> 35% ICD-10 Z68: No Intervention/Plan: Instruct on ideal BMI & set weight loss goal w/patient, Assist pt to ID & incorporate diet changes for weight loss by S9, Refer to Structured Weight Loss program as appropriate, Encourage goal of using 250-300dcal per session for weight loss and Other additional plan/interventions 30 day Reassessments:: Met Healthy Eating Habits Will attend diet classes:: Yes Outcomes/Goals:: Consume diet rich in vegs,fruits,whole grain/high fiber,fish,lean meat, Limit sat/trans fats,cholesterol & added salts & sugars and Other additional outcome/goals: Intervention/Plan:: Assess current eating habits and Other Additional plan/interventions 30-day Reassessments:: Progressing Education Gave educational materials for:: Signs & symptoms of hypoglycemia, Signs & symptoms of hyperglycemia, Relate diabetes to coronary artery disease and Healthy eating Core - 60-Day Assessment Visit Date of Eval: 07/20/23 Session #:: 25 Medication Compliance Preventative Medication(s):: Aspirin, Ticagrelor/P2Y12 inhibitor, Statin/lipid and Beta gene H/O mental health issues: depression, anxiety, or addiction?: No Doesn?t believe in the benefits of treatment?: No Believes medications are unnecessary or harmful?: No Has a concern about medication side effects?: No Expresses concern over the cost of medications?: No Outcomes/Goals: Verbalizes medications,desired effect & common side effects @ DC, Pt self-reports following medication regimen, Keeps card in wallet w/medications listed by DC and Other additional outcome/goals: Interventions/plans: Instruct on medication effects & side effects, Review medication list w/patient every two weeks, Instruct importance of taking meds as ordered & assist problem solving and Other additional 30-day Reassessments:: Met Tobacco Use Tobacco Use: Non-smoker Hypertension Hypertension Diagnosis:: Hypertension ICD-10 I10 Resting Blood Pressure:: 124/72 [place] [employer] Hypertension Guidelines Peak Exercise Blood Pressure:: 164/76 Outcomes/Goals: Able to verbalize/achieve optimal blood pressure <130/80, Incorporates diet changes & exercise for blood pressure control by DC and Other additional outcomes/goals Interventions/plan: Instruct on optimal blood pressure, hypertension & medications, Instruct on effects of sodium, alcohol, stress, exercise &hypertension and Other additional plan/interventions 30 day Reassessments:: Met Tobacco Cessation Referral Smoking Cessation Referral:: No Individual Education/Counseling:: No Education Schedule Given:: Yes Psychosocial - 30-Day Assess Target Goals Target Goals Outcomes/Goals: See list Psychosocial Outcomes/Goals:: ID's personal stressors & 2 strategies to manage stress by discharge and Other Additional outcome/goals: Psychosocial - 60-Day Assess VIsit Date of Eval: 07/20/23 Session #:: 25 History of previous Mental disease:: No Target Goals Target Goals Outcomes/Goals: See list Psychosocial Outcomes/Goals:: ID's personal stressors & 2 strategies to manage stress by discharge and Other Additional outcome/goals: Intervention/Plan: See List Interventions/Plan:: Assess stressors,coping strategies & signs of derpression on admission, Instruct/assist pt to develop coping & personal stress Mgt strategies, Refer to Behavioral Health if appropriate, Refer to Physician if appropriate, Instruct patient to recognize signs & symptoms of depression, Instruct patient to recog and Other additional plan/intervention Psychosocial - 90-Day Assess Target Goals Target Goals Psychosocial - Final Assessmen Target Goals Target Goals Nutrition - 90-Day Assessment Weight Mgt (Other Care) Height: 5 ft 8 in Weight:: 162 lb BMI: 24.6 Nutrition - Final Assessment Weight Mgt (Other Care) Height: 5 ft 8 in Weight:: 162 lb BMI: 24.6
[2023-07-20 08:28] VITALS: BP 124/72; BMI 24.6
== END 2023-08-13 23:59 ==
LOC: CR 08:00
PROVIDERS: PCP Internal Medicine; Referring Provider Internal Medicine Cardiovascular Disease; Visit Provider Internal Medicine Cardiovascular Disease
DX: Z95.5 Presence of coronary angioplasty implant and graft (principal); I46.9 Cardiac arrest, cause unspecified; I21.3 ST elevation (STEMI) myocardial infarction of unspecified site; R57.0 Cardiogenic shock
CPT/HCPCS: 93798

== ENCOUNTER 2023-08-17 08:00 | Outpatient (RCR) | payer OTHER, SELFPAY ==
[2023-07-20 08:28] VITALS: BMI 24.6
[2023-08-14 00:17] VITALS: BP 120/72; BP 124/72
== END 2023-09-13 23:59 ==
LOC: CR 08:00
PROVIDERS: PCP Internal Medicine; Referring Provider Internal Medicine Cardiovascular Disease; Visit Provider Internal Medicine Cardiovascular Disease
DX: Z95.5 Presence of coronary angioplasty implant and graft (principal); I46.9 Cardiac arrest, cause unspecified; I21.3 ST elevation (STEMI) myocardial infarction of unspecified site; R57.0 Cardiogenic shock
CPT/HCPCS: 93798

== ENCOUNTER 2023-12-19 10:33 | Emergency (ER) | payer OTHER, SELFPAY ==
[2023-07-20 08:28] VITALS: BMI 24.6
[2023-12-19 10:34] VITALS: BP 175/93; PULSE 74; RESP 18; TEMP 36.2; O2SAT 99; BMI 25.5
[2023-12-19] MEDS: Gelfoam 12-7 MM Sponge (1) 1 EACH TOPICAL (11:39)
--- NOTE | 2023-12-19 12:21 | EDS_ITS ---
HPI History of Present Illness Chief Complaint: Ear Problem Narrative Narrative: 63-year-old male past medical history of coronary artery disease on prasurgel presents with bleeding from his right ear that started this morning. He relates history that he has problems with earwax. Last night he used a Q-tip as he had done in the past. This morning, he awoke, and states that the pillow acts as a suction and when he lifted his head up as he was lying on his right side, a large piece of wax fell out. He then began having bleeding from his right ear. He states that he cannot get it to stop. He denies any chest pain or lightheadedness or other symptoms but is concerned because of continued bleeding from his right ear and the fact that he is on a blood thinner. [facility] Medical History Acute ST elevation myocardial infarction (STEMI) Atherosclerosis of coronary artery of [place] heart without angina pectoris Cardiac arrest Cardiogenic shock Coronary artery disease Home Medications prasugrel 10 mg tablet (Effient) 10 mg PO DAILY #30 tabs 04/27/23 [Rx Last Taken Unknown] atorvastatin 40 mg tablet 40 mg PO QHS 30 days #90 tabs 05/02/23 [Rx Last Taken Unknown] metoprolol succinate 25 mg tablet,extended release 24 hr 12.5 mg (1/2 x 25 mg) PO DAILY #45 tabs 05/02/23 [Rx Last Taken Unknown] lisinopril 5 mg tablet 5 mg PO DAILY 08/18/23 [History Last Taken Unknown] furosemide 40 mg tablet (Lasix) 40 mg PO Q OTHER DAY #30 tabs 10/14/23 [Rx Last Taken Unknown] potassium chloride 20 mEq tablet,extended release 20 meq PO Q OTHER DAY #30 tabs 10/14/23 [Rx Last Taken Unknown] aspirin 81 mg tablet,delayed release 81 mg PO DAILY #90 tabs 11/04/23 [Rx Last Taken Unknown] Allergy/AdvReac Type Severity Reaction Status Date / Time No Known Allergies Allergy Verified 12/19/23 10:36 Family History Mother Cardiomegaly Brother Heart disease Diabetes Father Diabetes Sister Diabetes Surgical History History of coronary artery stent placement (04/27/23) History of tonsillectomy Social History household members: spouse current occupational status: employed 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 HEENT: No sore throat. No neck pain. No loss of vision. No rhinorrhea. Bleeding from right ear. Cardiovascular: No chest pain. No palpitations. No pedal edema. Respiratory: No cough, no shortness of breath. Abdominal: No abdominal pain. No nausea. No vomiting. Genitourinary: No dysuria. No hematuria. Musculoskeletal: No myalgias. No arthralgias. Neurologic: No headaches. No dizziness. No lightheadedness. Skin: No rash. No change in color. Psychiatric: No depression. No anxiety. EXAM Physical Exam Narrative Exam Narrative: Afebrile. Vital signs noted. HEENT: Normocephalic. Atraumatic. PERRL, EOMI. Neck soft and supple. No point tenderness or step off. Inspection of right ear shows gross blood coming from his right ear canal. There is no pulsatile bleeding visualized through otoscope. TM appears clear nonruptured. Cardiovascular: Regular rate and rhythm. No murmurs, rubs, or gallops appreci ated. Respiratory: No tachypnea. Lungs clear to auscultation bilaterally. Gastrointestinal: Abdomen soft, nontender, with normoactive bowel sounds. No rebound or guarding. Neurological: Awake. Alert. Nonfocal, nonlateralizing. Skin: No rash. Normal color. No pallor. Musculoskeletal: No pedal edema. Full range of motion extremities. Const Vital Signs: 12/19/23 10:34 12/19/23 14:12 Temperature 97.2 F L Temperature Source Temporal Pulse Rate 74 72 Respiratory Rate 18 16 Blood Pressure 175/93 H 140/68 H Blood Pressure Mean 120 92 Pulse Ox 99 99 Oxygen Delivery Method Room Air MDM MDM MDM Narrative Medical decision making narrative: Concern is for ear canal abrasion versus laceration. As I feel that the lesion is too deep to hold direct pressure, gauze was placed. I discussed patient with Dr. Dawood Umanzor with otolaryngology who suggested ear wick and epinephrine in the right ear to at least slow the bleeding. Other options would be Gelfoam versus Miquel powder. Upon repeat examination, he has blood on the gauze that was inserted which was changed out. It is more of an oozing than active hemorrhage/pulsatile arterial bleed. Initially, earwick was inserted and epinephrine used to moisten the ear wick. This was left in place. Upon repeat examination, patient did have small amount of blood in his ear canal. Ear was lightly cleansed, and Gelfoam placed on top of the wick as it was difficult to remove. With Gelfoam, bleeding appears to have ceased. At this point in time, he was told to follow-up with otolaryngology in the next 2 days for removal of the ear wick and Gelfoam. Disposition is discharged home in stable condition. Management Discussion w/another healthcare provider: [facility] (Dr. Umanzor) Discharge Plan Triage Chief Complaint: Ear Problem ED Provider: Guicho Beckman Dx/Rx/DC Orders Clinical Impression: Bleeding from right ear, Antiplatelet or antithrombotic long-term use Instructions: Anatomy of the Ear, ED Earwax Removal Prescriptions: No Action lisinopril 5 mg tablet 5 mg PO DAILY furosemide [Lasix] 40 mg tablet 40 mg PO Q OTHER DAY Qty: 30 11RF potassium chloride 20 mEq tablet extended release 20 meq PO Q OTHER DAY Qty: 30 11RF prasugrel [Effient] 10 mg tablet 10 mg PO DAILY Qty: 30 11RF atorvastatin 40 mg tablet 40 mg PO QHS 30 Days Qty: 90 3RF metoprolol succinate 25 mg tablet extended release 24 hr 12.5 mg PO DAILY Qty: 45 3RF aspirin 81 mg tablet,delayed release (DR/EC) 81 mg PO DAILY Qty: 90 3RF Primary Care Provider: Jennifer Coffey Referrals: Jennifer Coffey MD [Primary Care Provider] - Dawood Umanzor MD [Med Staff - Active Staff] - 2 Days Activity Restrictions/Additional Instructions: Follow-up with Dr. Russ for removal of Gelfoam packing and wick. Disposition Disposition: Home, Self Care Discharge Date/Time: 12/19/23 14:13
[2023-12-19] MEDS: EPINEPHrine Nasal 0.1% 30 ML Bottle 0.299999999999999989 ML TOPICAL (12:51)
--- NOTE | 2023-12-19 14:11 | CHAPLAIN ---
Type of Pastoral Visit _x__ Initial Visit ___ Follow-up Visit ___ On-call Visit ___ General Patient Visit ___ Spiritual Assessment ___ Family Conference ___ Bereavement ___ Rapid Response ___ Code Blue ___ Other (describe below) Pastoral Care Referral From _x__ Patient ___ Family ___ Nurse ___ Physician ___ Cementer Hand ___ [employer] Hazmat Driver ___ Other (describe below) Sacrament/Intervention _x__ Active listening ___ Anointing ___ Anabaptism ___ Bereavement ___ Communion ___ [facility] ___ _x__ Life review _x__ Prayer ___ Reconciliation ___ Sacrament of Sick _x__ Supportive presence ___ Wedding ___ Other (describe below) Pastoral Comments
[2023-12-19 14:12] VITALS: BP 140/68; PULSE 72; RESP 16; O2SAT 99
== END 2023-12-19 14:13 | disposition home or self-care (01) ==
PROVIDERS: Emergency Provider Emergency Medicine; PCP Internal Medicine; Visit Provider Emergency Medicine
DX: H92.21 Otorrhagia, right ear (principal); I25.10 Atherosclerotic heart disease of native coronary artery without angina pectoris; Z79.02 Long term (current) use of antithrombotics/antiplatelets
CPT/HCPCS: 99283